=== PATIENT | male | born 1970 | race Caucasian/White ===

== ENCOUNTER 2023-07-02 09:42 | Outpatient (AMB) | payer MEDICAID, SELFPAY ==
--- NOTE | 2023-07-02 09:47 | A.OFFVIS_ITS ---
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 Digester Cook Required: No Software Test Specialist: Software Test Specialist Present Accompanied by: Mother Allergies No Known Allergies Allergy (Unverified 04/13/20 15:07) Medication List - Last Reconciled 07/02/23 by Lai Velasquez MD aspirin (Adult Aspirin Regimen) 81 mg PO DAILY atorvastatin 80 mg PO BEDTIME losartan 25 mg PO DAILY methadone (Methadose) 120 mg PO DAILY metoprolol succinate ER 12.5 mg PO DAILY ticagrelor (Brilinta) 90 mg PO BID HPI HPI Comments History of Present Illness Details Thank you for referring Logan in cardiology consultation today for management of his cardiovascular disease. He is a 52-year-old male who in March suffered acute myocardial infarction with inferior STEMI undergoing emergent cardiac catheterization and drug-eluting stent with thrombectomy to the mid RCA. Following that he was released home and surprisingly did not have any clear cardiology follow-up. He was taking all his medications. He was a long- term smoker and has used heroin and Xylazine in the past. He said he has had in the past chronic opioid use disorder for which he was clean for 13 years and started using it again. He discharge in March it in May while at home he had [id number]-mllhmwty cardiac arrest with ventricular arrhythmias was successfully resuscitated in the field and subsequently admitted to [facility] again. At that time he had ruled in again and underwent a cardiac catheterization which had shown patent stent and nonobstructive CAD. Echocardiogram done at that time at shown severe LV systolic dysfunction with LVEF of 20-25% with large area of scarred myocardium. Patient subsequently underwent single-chamber ICD placement of [employer]. He has not had any recurrent events since then. He is currently taking dual antiplatelet therapy with aspirin Brilinta, high-intensity statin therapy with atorvastatin as well as metoprolol which is at low dose 12.5 mg daily and losartan which is a 25 mg. He says ever since his event he has lost about 50 lb. He has chronic recurrent diarrhea and goes multiple times to the [facility]. He has not had any bleeding complications as per him. However mother notices that he is pale. He has also lost lot of muscle mass. He has no fever or chills or cough. He does complain of exertional shortness of breath. He has no heart failure symptoms of orthopnea, PND, leg edema or abdominal distension. No prolonged palpitation irregular heartbeat or ICD discharge. [facility] Medical History Polysubstance abuse Cardiac arrest ICD (implantable cardioverter-defibrillator) in place Ischemic cardiomyopathy CAD (coronary artery disease) Surgical History Stented coronary artery Review of Systems Const Denies chills, Denies daytime sleepiness, Denies fatigue, Denies fever(s), Denies frequent falls, Denies poor appetite, Denies snoring, Denies stops breathing during sleep, Denies weakness, Denies weight gain and Denies weight loss Eyes Denies loss of vision ENT Denies dizziness and Denies hearing loss Card Denies chest pain, Denies claudication, Denies leg edema, Denies lightheadedness, Denies palpitations, Denies dyspnea, Denies dyspnea on exertion and Denies orthopnea Resp Denies cough, Denies excessive phlegm production, Denies dyspnea, Denies dyspnea on exertion, Denies snoring and Denies wheezing GI Denies abdominal pain, Denies hematochezia, Denies change in bowel habits, Denies nausea and Denies vomiting Denies dysuria and Denies urinary frequency Musc Denies arthralgias, Denies muscle weakness, Denies numbness and Denies other (frequent falls) Skin/Breast Denies nail changes and Denies rash Neuro Denies Abnormal speech present, Denies dizziness, Denies frequent falls, Denies loss of vision, Denies memory loss, Denies numbness and Denies weakness Psych Denies depression and Denies memory loss Endo Denies fatigue and Denies palpitations Rustam/Lymph Reports easy bruising and Reports other (anemia) Aller/Immun Denies wheezing Physical Exam Vital Signs: Last Vital Signs Pulse 50 07/02/23 09:51 BP 120/76 07/02/23 09:51 BMI result Body Mass Index 23.7 Const General: cooperative, comfortable, no acute distress, alert, awake and other (Pale) Nutritional Appearance: thin Orientation/consciousness: patient oriented x3 Limitations: no limitations HEENT Head: Yes normocephalic and Yes atraumatic Neck Neck: Yes trachea midline, Yes supple and Yes no JVD Resp Effort & Inspection: normal respiratory effort Auscultation: clear to auscultation bilaterally Cardio Jugular venous distension: no JVD Palpation: abnormal PMI displaced PMI Rate: regular rate Rhythm: regular rhythm Heart sounds: S1 normal heart sound present, S2 normal heart sound present, no click, no gallops and no murmurs GI Auscultation: normal bowel sounds Skin General skin exam: no rashes or lesions noted Neuro General: patient oriented x3 and no focal motor deficits Speech: No Abnormal speech present Extrem General: Yes no clubbing, cyanosis or edema Office Procedures Cardiac Device Check Cardiac Device Check Details: [email or web address] subcutaneous ICD in place. Programmed in VVI at 40 beats per minute. VF zone at 220 beats per minute with treatment with ATP and subsequently shocked therapy. Ventricular sensing is excellent. Ventricular pacing thresholds excellent. Pacing and shock lead impedance is stable. Battery life is at 12 years 49777-[id number] Cardiac Device Check, single lead implantable defibrillator Procedure code (CPT) selection complete Assessment & Plan Assessment & Plan (1) Ischemic cardiomyopathy: Code(s): I25.5 - Ischemic cardiomyopathy Plan: Patient has developed severe ischemic cardiomyopathy by last echocardiogram although portion of it might be stress-induced cardiomyopathy related to sudden cardiac that. He is having symptoms of shortness of breath with exertion NYHA class 2. Will switch is therapy for neurohormonal modulation from metoprolol to carvedilol 3.125 mg b.i.d. and from losartan to Entresto. Advised to monitor blood pressure at home. Clinically euvolemic and well compensated with no signs or symptoms of heart failure. These were discussed with him. Long-term prognosis is impaired given his severe LV systolic dysfunction. Will follow-up in 4 weeks and will gradually uptitrate his medications as tolerated. Follow-up BMP in few days after starting Entresto. Importance of compliance with medication was discussed. Avoidance of cardiotoxic agent as well as drug use was discussed with him. (2) CAD (coronary artery disease): Comment: Inferior STEMI, March 2023 leading to drug-eluting stent to RCA with required mechanical thrombectomy Code(s): I25.10 - Atherosclerotic heart disease of [place] coronary artery without angina pectoris Plan: CAD status post RCA drug-eluting stent for inferior STEMI with residual significant myocardial infarct and scar. Importance of dual antiplatelet therapy was discussed. He has developed some side effect which is suspected to be related to Brilinta. Will switch him to Plavix 75 mg daily. Continue dual antiplatelet therapy for 1 year an interrupted. Phase 2 cardiac rehabilitation. Aggressive control of blood pressure. Continue high-intensity statin therapy. Advised lipid panel near future. Smoking cessation was applauded. Avoidance of drug use was discussed. Advised to gradually improve with exercise capacity. Will get baseline blood work (3) ICD (implantable cardioverter-defibrillator) in place: Comment: [employer] subcutaneous ICD for cardiac arrest, 06/19 Code(s): Z95.810 - Presence of automatic (implantable) cardiac defibrillator Plan: ICD in place for secondary prevention. ICD is working well. Will follow remotely for heart failure and ICD function. Will follow up in the clinic in 6 months time. Thank you for allowing us to partake in his care. Will follow up in the clinic in 4 weeks time. Greater than 40 minutes was spent in managing his complex care Orders: Orders Basic Metabolic Panel Today I25.10 - Atherosclerotic heart disease of [place] coronary artery without angina pectoris Complete Blood Count no Diff Today I25.10 - Atherosclerotic heart disease of [place] coronary artery without angina pectoris Lipid Panel Today I25.10 - Atherosclerotic heart disease of [place] coronary artery without angina pectoris Cardiac Rehab Today I25.5 - Ischemic cardiomyopathy, Z95.2 - Presence of prosthetic heart valve B Type Natriuretic Peptide Today I25.10 - Atherosclerotic heart disease of [place] coronary artery without angina pectoris Magnesium Today I25.10 - Atherosclerotic heart disease of [place] coronary artery without angina pectoris TSH reflex Free T4 Today I25.10 - Atherosclerotic heart disease of [place] coronary artery without angina pectoris Medications: New sacubitril-valsartan 24-26 mg (Entresto) 1 tab PO BID 60 tabs 2RF I25.5 - Ischemic cardiomyopathy carvedilol (Coreg) must administer with a meal/food 3.125 mg PO BID 60 tabs 1RF I25.5 - Ischemic cardiomyopathy clopidogrel (Plavix) 75 mg PO DAILY 30 tabs 1RF I25.5 - Ischemic cardiomyopathy Coding Level of Care Code New Pt Level 5 (65359) Diagnoses Ischemic cardiomyopathy I25.5 CAD (coronary artery disease) I25.10 ICD (implantable cardioverter-defibrillator) in place Z95.810 CPT Codes Cardiac Device Check - Cardiac Device 4: 73605-UY Cardiac Device Check, single lead implantable defibrillator ([id number])
[2023-07-02 09:51] VITALS: BP 120/76; PULSE 50; BMI 23.7
== END 2023-07-02 10:35 | disposition home or self-care (01) ==
PROVIDERS: PCP Internal Medicine; Visit Provider Internal Medicine Cardiovascular Disease
DX: I25.5 Ischemic cardiomyopathy (principal); I25.10 Atherosclerotic heart disease of native coronary artery without angina pectoris; Z95.810 Presence of automatic (implantable) cardiac defibrillator
CPT/HCPCS: 93282; 99205

== ENCOUNTER → 2023-07-02 09:42 | Outpatient (BNVA) | payer MEDICAID, SELFPAY | PROVIDERS: PCP Internal Medicine; Visit Provider Internal Medicine Cardiovascular Disease | DX: Z45.02 Encounter for adjustment and management of automatic implantable cardiac defibrillator (principal); I25.10 Atherosclerotic heart disease of native coronary artery without angina pectoris; I25.5 Ischemic cardiomyopathy | CPT/HCPCS: 99202 ==

== ENCOUNTER → 2023-07-08 23:59 | Outpatient (BNV) | payer MEDICAID, SELFPAY ==
--- NOTE | 2023-07-10 16:06 | A.OFFVIS_ITS ---
Intake Intake Visit Reasons: Remote ICD Check- [employer] Allergies No Known Allergies Allergy (Unverified 04/13/20 15:07) [facility] Medical History Polysubstance abuse Cardiac arrest ICD (implantable cardioverter-defibrillator) in place Ischemic cardiomyopathy CAD (coronary artery disease) Surgical History Stented coronary artery Office Procedures Cardiac Device Check Cardiac Device Check Details: Remote ICD report generated 07/08/2023. Patient had 1 episode of high ventricular rate which was in VT zone and was treated with to ATP pacing. Patient subsequently converted to sinus rhythm. ICD function is adequate. After calling patient seems like patient was lightheaded during this episode. No syncopal episodes or ICD shock [id number] Cardiac Interrogation, implant defibrillator w/interim Procedure code (CPT) selection complete Assessment & Plan Assessment & Plan (1) ICD (implantable cardioverter-defibrillator) in place: Comment: [employer] subcutaneous ICD for cardiac arrest, 06/19 Code(s): Z95.810 - Presence of automatic (implantable) cardiac defibrillator Plan: See above Medications: Discontinued carvedilol (Coreg) must administer with a meal/food Discontinued Reason: Doctor's Order 3.125 mg PO BID 90 days 180 tabs 1RF I25.5 - Ischemic cardiomyopathy Coding Level of Care Code Procedure Only Diagnoses ICD (implantable cardioverter-defibrillator) in place Z95.810 CPT Codes Cardiac Device Check - Cardiac Device 13: [id number] Cardiac Interrogation, implant defibrillator w/interim ([id number])
== END ==
PROVIDERS: PCP Internal Medicine; Visit Provider Internal Medicine Cardiovascular Disease
DX: I25.5 Ischemic cardiomyopathy (principal); Z95.810 Presence of automatic (implantable) cardiac defibrillator
CPT/HCPCS: 93295

== ENCOUNTER 2023-07-31 15:24 | Outpatient (AMB) | payer MEDICAID, SELFPAY ==
[2023-07-31 15:30] VITALS: BP 110/70; PULSE 100; BMI 22.8
--- NOTE | 2023-07-31 15:30 | MHC.OFFVIS ---
Intake Vital Signs 07/31/23 15:30 Height 5 ft 9.5 in Weight 156 lb 8.451 oz BMI 22.8 BP 110/70 Blood Pressure Location Lt brachial Position Sitting Pulse 100 Intake Visit Reasons: [facility] dc Intake Note: Follow-up [facility] [employer] with ekg Rubber Chemist Required: No Sports Administrator: Sports Administrator Present Accompanied by: Mother Allergies No Known Allergies Allergy (Unverified 04/13/20 15:07) Medication List - Last Reconciled 07/31/23 by Lai Velasquez MD aspirin (Adult Aspirin Regimen) 81 mg PO DAILY atorvastatin 80 mg PO BEDTIME clopidogrel (Plavix) 75 mg PO DAILY magnesium 250 mg PO DAILY methadone (Methadose) 90 mg PO DAILY metoprolol succinate ER 100 mg PO DAILY sacubitril-valsartan 24-26 mg (Entresto) 1 tab PO BID HPI HPI Comments History of Present Illness Details Logan comes for follow-up after recent hospitalization with VT storm. Patient admitted to [facility] for about a week. Subsequently had upgrade of his single-chamber device to dual-chamber [employer] device with atrial rate set at 100 beats per minute. Patient also started on mexiletine therapy. Also suggestion of reducing methadone dose as it was suspected that his arrhythmias mostly polymorphic in might be induced by methadone. He has actively reduces methadone to 90 mg daily. He has not had any recurrent episode. He also started Entresto therapy and is tolerating this now. Also metoprolol therapy for neurohormonal modulation. He has not had any recurrent anginal sounding chest discomfort. Denies any heart failure symptoms. He is very anxious about his overall heart condition which is understandable. [facility] Medical History (Updated 08/01/23 @ 14:59 by Lai Velasquez MD) Polysubstance abuse Cardiac arrest ICD (implantable cardioverter-defibrillator) in place Ischemic cardiomyopathy CAD (coronary artery disease) Surgical History Stented coronary artery Review of Systems Const Denies chills, Denies fatigue, Denies fever(s), Denies frequent falls, Denies weakness, Denies weight gain and Denies weight loss ENT Denies dizziness Card Denies chest pain, Denies leg edema, Denies lightheadedness, Denies palpitations, Denies dyspnea, Denies dyspnea on exertion, Denies orthopnea and Denies other (loss of consciousness) Resp Denies cough, Denies dyspnea and Denies dyspnea on exertion GI Denies hematochezia and Denies change in stool character Musc Denies abnormal gait, Denies muscle weakness, Denies numbness, Denies radiating pain into limb and Denies tingling Neuro Denies Abnormal speech present, Denies abnormal gait, Denies dizziness, Denies frequent falls, Denies numbness, Denies tingling and Denies weakness Endo Denies fatigue and Denies palpitations Physical Exam Vital Signs: Last Vital Signs Pulse 100 07/31/23 15:30 BP 110/70 07/31/23 15:30 BMI result Body Mass Index 22.8 Const General: cooperative, comfortable, no acute distress, alert, awake and other (Pale) Nutritional Appearance: thin Orientation/consciousness: patient oriented x3 Limitations: no limitations HEENT Head: Yes normocephalic and Yes atraumatic Neck Neck: Yes trachea midline, Yes supple and Yes no JVD Resp Effort & Inspection: normal respiratory effort Auscultation: clear to auscultation bilaterally Cardio Jugular venous distension: no JVD Palpation: abnormal PMI displaced PMI Rate: regular rate Rhythm: regular rhythm Heart sounds: S1 normal heart sound present, S2 normal heart sound present, no click, no gallops and no murmurs GI Auscultation: normal bowel sounds Skin General skin exam: no rashes or lesions noted Neuro General: patient oriented x3 and no focal motor deficits Speech: No Abnormal speech present Extrem General: Yes no clubbing, cyanosis or edema Office Procedures Cardiac Device Check Cardiac Device Check Details: Dual-chamber [employer] ICD in place. Programmed in DDDR at 100 beats per minute. Pacing 100% of the time. No significant arrhythmias detected since June. Atrial ventricular sensing is adequate. Atrial ventricular pacing thresholds adequate. Pacing and shock lead impedance is stable. Battery life is excellent [id number] Cardiac Device Check, dual lead implantable defibrillator Procedure code (CPT) selection complete EKG Details: EKG shows atrially paced, ventricularly sensed rhythm with inferior infarct as well as diffuse ST T wave changes in the anterior leads with QTC interval of 490 milliseconds [id number], Complete Assessment & Plan Assessment & Plan (1) Cardiac arrest: Code(s): I46.9 - Cardiac arrest, cause unspecified Plan: Patient with repeat VT storm and hospitalization with polymorphic ventricular tachycardia which could be related to drug therapy. There is active trial to reduce methadone therapy. He has reducing it gradually and wants to come off it. This effort was applauded. Also possibly could be related to scar based VT. However currently his atrial rate is set at 100 beats per minute to reduce risk of torsades and is being followed by electrophysiology service and will gradually reduce his rate. Continue mexiletine therapy. Avoid other QT prolonging drugs. Patient was advised to avoid any other dqdo-btk-uawgtry medications without discussion with our team. He understands and agrees. Will continue monitor remotely (2) ICD (implantable cardioverter-defibrillator) in place: Comment: [employer] subcutaneous ICD for cardiac arrest, 06/19 Code(s): Z95.810 - Presence of automatic (implantable) cardiac defibrillator Plan: Dual-chamber ICD in place for polymorphic ventricular tachycardia as well as for secondary prevention. Will follow remotely. (3) Ischemic cardiomyopathy: Code(s): I25.5 - Ischemic cardiomyopathy Plan: Moderately severe LV systolic dysfunction related to ischemic cardiomyopathy. Clinically euvolemic and well compensated. No indication for diuretic therapy at this point time. Agree with Entresto therapy and metoprolol therapy. Blood pressure is well optimized. Signs and symptoms of heart failure were discussed. He understands and agrees. Need for neurohormonal modulation to prevent further worsening of LV systolic function was discussed with him. Avoidance of cardiotoxic agent was discussed. Continue maximize therapy as tolerated. (4) CAD (coronary artery disease): Comment: Inferior STEMI, March 2023 leading to drug-eluting stent to RCA with required mechanical thrombectomy Code(s): I25.10 - Atherosclerotic heart disease of [place] coronary artery without angina pectoris Plan: CAD status post inferior STEMI with infarcted myocardium in the inferior territory. Continue dual antiplatelet therapy for total of 1 year. Continue high-intensity statin therapy with target goal LDL closer to 60 mg/dL. Avoidance of all drugs including cocaine and smoking was discussed with him. Advised to participate in phase 2 cardiac rehabilitation. He is considering that in near future. Will follow up in the clinic in 3 months time, sooner p.r.n.. Greater than 40 minutes was spent in managing his complex care Coding Level of Care Code Est Pt Level 5 (15299) Diagnoses Cardiac arrest I46.9 ICD (implantable cardioverter-defibrillator) in place Z95.810 Ischemic cardiomyopathy I25.5 CAD (coronary artery disease) I25.10 CPT Codes Cardiac Device Check - Cardiac Device 5: [id number] Cardiac Device Check, dual lead implantable defibrillator ([id number]) EKG - CPT: 42570-Lkklmhwkihweufhqu, Complete ([id number])
== END 2023-07-31 16:07 | disposition home or self-care (01) ==
PROVIDERS: PCP Internal Medicine; Visit Provider Internal Medicine Cardiovascular Disease
DX: I46.9 Cardiac arrest, cause unspecified (principal); I25.5 Ischemic cardiomyopathy; Z95.810 Presence of automatic (implantable) cardiac defibrillator; I25.10 Atherosclerotic heart disease of native coronary artery without angina pectoris
CPT/HCPCS: 93283; 99215

== ENCOUNTER → 2023-07-31 15:24 | Outpatient (BNVA) | payer MEDICAID, SELFPAY | PROVIDERS: PCP Internal Medicine; Visit Provider Internal Medicine Cardiovascular Disease | DX: Z45.02 Encounter for adjustment and management of automatic implantable cardiac defibrillator (principal); I46.9 Cardiac arrest, cause unspecified; I25.5 Ischemic cardiomyopathy; I25.10 Atherosclerotic heart disease of native coronary artery without angina pectoris | CPT/HCPCS: 93005; 99212 ==

== ENCOUNTER 2023-08-11 09:50 | Outpatient (AMB) | payer MEDICAID, SELFPAY ==
[2023-08-11 10:24] VITALS: BP 114/82; BMI 22.6
--- NOTE | 2023-08-11 10:24 | A.OFFVIS_ITS ---
Intake Vital Signs 08/11/23 10:24 Height 5 ft 9 in Weight 153 lb 0.013 oz BMI 22.6 BP 114/82 Blood Pressure Location Rt brachial Position Sitting Intake Visit Reasons: follow-up [facility] ED Unemployment Inspector Required: No Rn Anesthetist: Rn Anesthetist Present Allergies No Known Allergies Allergy (Verified 08/11/23 10:27) Medication List - Last Reconciled 08/11/23 by JOHANNY Manjarrez aspirin (Adult Aspirin Regimen) 81 mg PO DAILY atorvastatin 80 mg PO BEDTIME clopidogrel (Plavix) 75 mg PO DAILY magnesium 250 mg PO DAILY methadone (Methadose) 90 mg PO DAILY metoprolol succinate ER 100 mg PO DAILY sacubitril-valsartan 24-26 mg (Entresto) 1 tab PO BID HPI follow-up [facility] ED HPI Details Logan is a 52-year-old male with past medical history of smoking, inferior STEMI 03/2023 with emergent cardiac catheterization and drug-eluting stent with thrombectomy to the mid RCA. In May 2023 he had a out of hospital cardiac arrest with successful resuscitation in the field. He underwent cardiac catheterization at that time which showed patent stent, nonobstructive CAD. Echocardiogram showed severe LV dysfunction, EF 20-25% with large area of scarred myocardium. He underwent a single-chamber ICD placement and was put on appropriate medical management. He then was admitted to [facility] on 07/19/2023 following ICD shock which proceeded to VT storm. He was admitted to the CCU and evaluated by electrophysiology. He was on IV medications to suppress ventricular arrhythmias and eventually transition to mexiletine and metoprolol. He Did undergo placement of a right atrial pacemaker lead. He was to follow with electrophysiology and the heart failure team at [facility] following discharge. Today he reports that he was not sure if he was to come to this office or not. He had been following with Dr. Velasquez and he now has appointments with doctors at [facility]. He has been doing generally well since his last hospital discharge. He did have 1 episode where he felt tingling in his extremities which is the symptom that he felt prior to getting the ICD shock. He said he went to the [facility] ER and was told things were okay. He denies having any chest discomfort at rest or with activity. No shortness of breath, palpitations, presyncope, syncope, PND, orthopnea or edema. He is taking all medications as directed. He quit smoking. He is trying to wean his methadone down as he knows it can affect his heart. His mother is present. [facility] Medical History (Updated 08/11/23 @ 11:53 by JOHANNY Manjarrez) Polysubstance abuse Cardiac arrest ICD (implantable cardioverter-defibrillator) in place Ischemic cardiomyopathy CAD (coronary artery disease) Surgical History (Updated 08/11/23 @ 11:53 by NABILA ManjarrezC) Stented coronary artery Review of Systems Const All systems reviewed & are unremarkable except as noted in HPI and below ENT Denies dizziness Card Denies chest pain, Denies chest pain at rest, Denies chest pain with activity, Denies rapid heart rate, Denies pedal edema, Denies edema, Denies leg edema, Denies lightheadedness, Denies palpitations, Reports dyspnea, Reports dyspnea on exertion and Denies orthopnea Resp Denies cough, Reports dyspnea and Reports dyspnea on exertion GI Denies hematochezia and Denies change in stool character Musc Denies abnormal gait, Denies limited range of motion, Denies muscle cramps, D enies muscle weakness, Denies numbness, Denies radiating pain into limb, Denies stiffness and Denies tingling Neuro Denies abnormal gait, Denies dizziness, Denies numbness and Denies tingling Endo Denies palpitations Physical Exam Vital Signs: Last Vital Signs BP 114/82 08/11/23 10:24 BMI result Body Mass Index 22.6 Const General: cooperative, healthy appearing, comfortable and no acute distress Orientation/consciousness: patient oriented x3 Neck Neck: Yes normal visual inspection Resp Effort & Inspection: normal respiratory effort Auscultation: clear to auscultation bilaterally, no rales, no rhonchi and no wheezes Cardio Jugular venous distension: no JVD Rate: regular rate Rhythm: regular rhythm Heart sounds: S1 normal heart sound present, S2 normal heart sound present, no murmurs and no rubs Neuro General: patient oriented x3 Extrem General: Yes normal to inspection, No no pedal edema and No calf tenderness Psych Appearance: grossly normal Mental Status: mental status grossly normal Speech and movement: Normal speech and movement present Assessment & Plan Assessment & Plan (1) Ventricular tachycardia: Code(s): I47.20 - Ventricular tachycardia, unspecified Plan: Patient with prior inferior STEMI, large inferior scar, ischemic cardiomyopathy, ICD in place who had several ICD shocks on 07/19/2023 with admission to [facility] in [place] storm. He did initially require IV drip medication, lidocaine and esmolol to help control ventricular arrhythmias. He was eventually weaned and was on amiodarone which was then changed to mexiletine. Was discharged with mexiletine 150 mg twice daily, metoprolol succinate 100 mg daily. He has follow-up with electrophysiology at [facility]. His ICD was upgraded to a dual-chamber device. An atrial lead was placed. He has not had any known ICD shocks since his hospital discharge. [place] tingling in his body on 1 day which is a symptom he noticed prior to receiving ICD shocks. He did get evaluated at [facility] without known acute findings. Medications reviewed with him in detail. He reports strict compliance. He quit smoking completely and was applauded on this. Will have him continue to follow with [facility] providers as he has been set up with electrophysiology and the heart failure team. Dr. Velasquez is aware and agreeable. (2) ICD (implantable cardioverter-defibrillator) in place: Comment: [employer] subcutaneous ICD for cardiac arrest, 06/19 Code(s): Z95.810 - Presence of automatic (implantable) cardiac defibrillator Plan: Brief interrogation done today to evaluate for any recurrent shocks and none noted. Remote monitoring has now been taken over by [facility] providers. Patient informed of this. (3) Ischemic cardiomyopathy: Code(s): I25.5 - Ischemic cardiomyopathy Plan: EF reduced to 20-25% post inferior infarct with large area of scarred myocardium. He is currently on metoprolol succinate and valsartan for neurohormonal modulation. BP check done by me after patient sitting and resting, 96/62. Blood pressure currently on low side, unable to further titrate medications. Most recent labs done through [facility] system. He does not appear in decompensated heart failure at this time. Will continue on current meds without change. (4) CAD (coronary artery disease): Comment: Inferior STEMI, March 2023 leading to drug-eluting stent to RCA with required mechanical thrombectomy Code(s): I25.10 - Atherosclerotic heart disease of [place] coronary artery without angina pectoris Plan: As above. No reports of anginal sounding symptoms (5) Stented coronary artery: Comment: WINNIE to mid-RCA for Inferior STEMI Code(s): Z95.5 - Presence of coronary angioplasty implant and graft Plan: As above (6) Hospital discharge follow-up: Code(s): Z09 - Encounter for follow-up examination after completed treatment for conditions other than malignant neoplasm Plan: As above Plan Time spent on chart review, documentation, interview and assessment Coding Level of Care Code Est Pt Level 4 (97465) Diagnoses Ventricular tachycardia I47.20 ICD (implantable cardioverter-defibrillator) in place Z95.810 Ischemic cardiomyopathy I25.5 CAD (coronary artery disease) I25.10 Stented coronary artery Z95.5 Hospital discharge follow-up Z09 Time Spent (min) 35
== END 2023-08-11 11:22 | disposition home or self-care (01) ==
PROVIDERS: PCP Internal Medicine; Visit Provider Nurse Practitioner Family
DX: I47.20 Ventricular tachycardia, unspecified (principal); Z95.810 Presence of automatic (implantable) cardiac defibrillator; I25.5 Ischemic cardiomyopathy; I25.10 Atherosclerotic heart disease of native coronary artery without angina pectoris; Z95.5 Presence of coronary angioplasty implant and graft; Z09 Encounter for follow-up examination after completed treatment for conditions other than malignant neoplasm
CPT/HCPCS: 99214

== ENCOUNTER → 2023-08-11 09:50 | Outpatient (BNVA) | payer MEDICAID, SELFPAY | PROVIDERS: PCP Internal Medicine; Visit Provider Nurse Practitioner Family | DX: Z09 Encounter for follow-up examination after completed treatment for conditions other than malignant neoplasm (principal); I47.20 Ventricular tachycardia, unspecified; I25.5 Ischemic cardiomyopathy; I25.10 Atherosclerotic heart disease of native coronary artery without angina pectoris; Z95.5 Presence of coronary angioplasty implant and graft; Z95.810 Presence of automatic (implantable) cardiac defibrillator | CPT/HCPCS: 99212 ==

== ENCOUNTER 2024-08-18 13:58 | Outpatient (REF) | payer MEDICAID, SELFPAY ==
--- OUTSIDE RECORDS SUMMARY | 2024-08-18 16:17 | XMS_ITS | Clinical Summary ---
Author Organization [employer] Address [address] [place] [address] [address] [place] [address] Care Team Providers Care Core Shaper Sides Name Role Phone Reza Nova MD Primary Care Provider [phone] Allergies No known active allergies Medications * This document contains information received from the source organization and may not represent a complete record from that organization. nicotine (Nicoderm, Step 1) 21 MG/24HR patch APPLY 1 PATCH TOPICALLY EVERY DAY. REMOVE OLD PATCH BEFORE APPLYING NEW ONE. 04/12/20 23 Active Aspirin Low Dose 81 MG chewable tabletIndicatio ns:ST elevation myocardial infarction involving right coronary artery (CMS/HCC) Chew 1 tablet (81 mg) in the morning. 900 tablet 04/28/20 23 Active atorvastatin (Lipitor) 80 MG tabletIndicatio ns:ST elevation myocardial infarction involving right coronary artery (CMS/HCC) Take 1 tablet (80 mg) by mouth in the morning. 90 tablet 3 04/28/20 23 Active magic mouthwash (lidocaine, diphenhydrAMINE , Maalox 1:1:1) Swish and spit 15 mL every 4 (four) hours if needed for mucositis. 1 part diphenhydramine 12.5 mg per 5 mL elixir, 1 part Maalox (do not substitute Kaopectate), 1 part 2% viscous lidocaine. Quantity: 120 mL. 120 each 06/04/20 Active Additional Information Patient not taking.Reported on 03/25/2024 magnesium oxide (Mag-Ox) 400 (240 Mg) MG tablet Take 1 tablet by mouth 1 (one) time each day. 07/19/20 Active methadone (Dolophine) 10 MG/5ML solution Take 110 mg by mouth 1 (one) time each day. 05/30/20 Active metoprolol succinate XL (Toprol-XL) 100 MG 24 hr tablet Take 1 tablet by mouth 1 (one) time each day. 07/19/20 Active mexiletine (Mexitil) 150 MG capsule Take 1 capsule by mouth every 12 (twelve) hours. 07/19/20 Active Entresto 24-26 MG tablet Take 1 tablet by mouth 2 times daily. 07/02/20 Active Bisacodyl EC 5 MG EC tabletIndicatio ns:Other constipation TAKE 1 TABLET BY MOUTH EVERY DAY NEEDED FOR CONSTIPATION. DO NOT CRUSH, CHEW, OR SPLIT TABLETS. 90 tablet 05/13/20 24 Active hydrocortisone (Anusol-HC) 2.5 % rectal creamIndication s:External hemorrhoids INSERT INTO THE RECTUM 2 TIMES DAILY. 30 g 1 07/13/20 Active amoxicillin-cla vulanate (Augmentin) 875-125 MG tabletIndicatio ns:Non-recurren t acute serous otitis media of left ear Take 1 tablet by mouth 2 times daily for 10 days. 20 tablet 08/18/19 25 025 Active clopidogrel (Plavix) 75 MG tablet Take 1 tablet by mouth 1 (one) time each day. 07/03/20 23 025 Discontin ued(Thera py completed ) neomycin-polymy yakelin-hydrocortis one (Cortisporin) 3.5-34051-1 otic suspensionIndic ations:Other infective acute otitis externa of left ear Administer 3-4 drops into affected ear(s) 4 times daily for 10 days. 10 mL 07/15/20 24 024 amoxicillin (Amoxil) 500 MG capsule Take 1 capsule (500 mg) by mouth every 8 (eight) hours for 7 days. 21 capsule 08/03/19 25 025 ibuprofen 600 MG tablet Take 1 tablet (600 mg) by mouth 3 times daily for 10 days. 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 [address] [place] [address] Reza Nova MD Non-recurrent acute serous otitis media of left ear (Primary Dx) 08/18/2024 Travel 08/17/2024 Travel 08/17/[address] [facility] [address] [place] [address] Reza Nova MD Nurse Triage 08/04/2024 Orders Only [facility] [address] [place] [address] Reza Nova MD 08/03/2024 9:00 AM EST Office Visit [facility] ADULT DENTAL [address] [place] [address] Mckenna Mcdaniel DDS 07/16/2024 Telephone [facility] [address] [place], [place] [id number] Reza Nova MD Medication Question 07/15/2024 9:45 AM EST Office Visit 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 [address] [place] [address] Reza Nova MD External hemorrhoids from Last 3 Months Immunizations Name Administration Dates Next Due Pfizer Covid-19 Vaccine 12+ 01/22/2024 Pneumococcal Conjugate PCV 20 01/22/2024 Family History Medical History Relation Name Comments Colon cancer Maternal Grandfather No Known Problems Paternal Grandfather Relation Name Status Comments Maternal Grandfather Paternal Grandfather Social History Tobacco Use Types Packs/Day Years Used Date Smoking Tobacco: Former Cigarettes 1 37 1 - 05/24/2023 Smokeless Tobacco: Never Tobacco Cessation:Counseling Given: Not Answered Comments:Has Nicotine patches at home. Slowly cutting down. Depression Answer Date Recorded Patient Health Questionnaire-9 Score 7 01/22/2024 Patient Health Questionnaire-9 Score 7 01/22/2024 Last PHQ-9: Questionnaire Data Not on file 0 01/22/2024 Housing Stability Answer Date Recorded What is your housing situation today? I have tarun francois 07/15/[address] you li ve. Do you have problems with any of the following? None of the above 07/15/2024 Food Insecurity Answer Date Recorded Within the past 12 months, y ou worried that your food would run out before you got money to buy more: Never True 07/15/2024 Within the past 12 months,th e food you bought just didn't last and you didn't have enough money to get more: Never True Transportation Answer Date Recorded In the past 12 months, has l ack of transportation kept you from medical appts, meetings, work or from getting things needed for daily living? No 07/15/2024 Utilities Answer Date Recorded In the past 12 months, has t he electric, gas, oil or water company threatened to shut off services in your home? No 07/15/2024 Depression Answer Date Recorded Patient Health Questionnaire-2 Score 3 01/22/2024 Internet Access Answer Date Recorded Internet Access Q1 Yes 07/15/2024 Internet Access Q2 Not on file 07/15/2024 Sex and Gender Information Value Date Recorded Sex Assigned at Male 05/27/2022 10:20 AM EDT Legal Sex Male 10:20 AM EDT Gender Identity Male 05/27/2022 10:20 AM EDT Sexual Orientation Don't know 05/27/2022 10 :20 AM EDT Last Filed Vital Signs Vital Sign Reading Time Taken Comments Blood Pressure 101/66 08/18/2024 2:18 PM EST Pulse 84 08/18/2024 2:18 PM EST Temperature 36.6 ??C (97.8 ??F) 08/18/2024 2:18 PM ES T Respiratory Rate 20 08/18/2024 2:18 PM EST Oxygen Saturation 97% 04/14/2024 3:26 PM EDT Inhaled Oxygen Concentration - - Weight 80.3 kg (177 lb) 08/18/2024 2:18 PM EST Height 175.3 cm (5' 9 ) 08/18/2024 2:18 PM EST Body Mass Index 26.14 08/18/2024 2:18 PM EST Plan of Treatment Upcoming Encounters Date Type Department Care Team (Late st Contact Info) Description 10/11/2024 9:00 AM EDT Office Visit [facility] [address] [place] [address] Reza Nova MD [address] [place] [address] Health Maintenance Due Date Last Done Comments CT Colonography 1972 Colonoscopy 1972 Colorectal Cancer Screening 1972 FIT DNA/Cologuard 1972 FIT 1972 FOBT 1972 HIV Screening 1972 Lipid Panel 1972 Sigmoidoscopy 1972 Family Planning (PISQ) 1987 Hepatitis C Screening 1990 DTaP/Tdap/Td Vaccines (1 - Tdap) 1991 Hepatitis A Vaccines (1 of 2 - Risk 2-dose series) 1991 Hepatitis B Vaccines (1 of 3 - 19+ 3-dose series) 1991 Dental Oral Exam 04/05/2017 10/02/2016 Dental Prophylaxis 02/10/2019 08/12/2018, 1 08/24/2016, 12/17/2016 Dental X-Ray: Full Mouth 10/04/2019 10/02/2016, 11/2012 Dental X-Ray: Bitewings 09/22/2020 09/21/19 20, 12/14/2018, 08/10/2018, Additional history exists Lung Cancer Screening 2022 Zoster Vaccines (1 of 2) 2022 COVID-19 Vaccine ( season) 2024 01/22/2024, 08/17/2021, 01/20/2021, Additional history exists Influenza Vaccine (#1) 2024 Depression Screening 01/21/2025 01/22/2024, 01/22/20 Alcohol/Substance Use Screening 07/15/2025 07/15/2024 SDOH Screening 07/15/2025 07/15/2024 Tobacco Screening 08/03/2025 08/03/2024 RSV Patients and Patients Aged 60 years or older (1 - 1-dose 75+ series) 2047 Pneumococcal Vaccine: Pediatrics (0 to 5 Years) and At-Risk Patients (6 to 64 Years) Completed 01/22/2024 HIB Vaccines Aged Out No longer eligi ble based on patient's age to complete this topic HPV Vaccines Aged Out No longer eligi ble based on patient's age to complete this topic IPV Vaccines Aged Out No longer eligi ble based on patient's age to complete this topic Meningococcal Vaccine Aged Out No ivania abraham eligible based on patient's age to complete this topic RSV under 20 months Aged Out No longe r eligible based on patient's age to complete this topic Rotavirus Vaccines Aged Out No longer eligible based on patient's age to complete this topic Procedures Procedure Name Priority Date/Time Associated Diagnosis Comments 5 LIMITED ORAL EVALUATION - PROBLEM FOCUSED Routine 08/03/2024 9:00 AM EST BITEWING - SINGLE RADIOGRAPHIC IMAGE Routine 09/21/2019 12:00 AM EST PROPHYLAXIS - ADULT Routine 08/12/2018 1 2:00 AM EST DIAGNOSTIC - DIAGNOSTIC IMAGING - INTRAORAL - COMPREHENSIVE SERIES OF RADIOGRAPHIC IMAGES Routine 10/02/2016 12:00 AM EST COMPREHENSIVE ORAL EVALUATION - NEW OR ESTABLISHED PATIENT Routine 10/02/2016 12:00 AM EST from Last 3 Months or Most Recently Relevant to Health Maintenance Insurance [facility] ST[facility] ADULT Care Teams Core Shaper Sides Relationship Specialty Start Date End Date Reza Nova MD [address] [place] [address] PCP - General Internal Medicine 07/28/18
--- OUTSIDE RECORDS SUMMARY | 2024-08-18 16:17 | XMS_ITS | Encounter Summary ---
Author Organization [employer] Address [address] [place] [address] Care Team Providers Care Attending Pathologist Name Role Phone Reza Nova MD Primary Care Provider [phone] Encounter Details Date Type Department Care Team (Latest Contact Info) Description 08/18/2024 Travel Social History Tobacco Use Types Packs/Day Years Used Date Smoking Tobacco: Former Cigarettes 1 37 1 - 05/24/2023 Smokeless Tobacco: Never Comments:Has Nicotine patche s at home. Slowly cutting down. Depression Answer [...] Don't know 05/27/2022 10 :20 AM EDT documented as of this encounter Plan of Treatment Upcoming Encounters Date Type Department Care Team (Late st Contact Info) Description 10/11/2024 9:00 AM EDT Office Visit [facility] [address] [place] [address] Reza Nova MD [address] [place] [address] documented as of this encounter Visit Diagnoses Not on filedocumented in this encounter Additional Health Concerns Assessment Noted Time PHQ-9 Depression Total Score: 7 01/22/20 24 3:45 PM EDT documented as of this encounter Care Teams Attending Pathologist Relationship Specialty Start Date End Date Reza Nova MD [address] [place] [address] PCP - General Internal Medicine 07/28/18 documented as of this encounter
--- OUTSIDE RECORDS SUMMARY | 2024-08-18 16:17 | XMS_ITS | Encounter Summary ---
Author Organization [employer] Address [address] [place] [address] Care Team Providers Care Welding Setter Name Role Phone Reza Nova MD Primary Care Provider [phone] Reason for Visit * Reason Onset Date Comments Nurse Triage 08/17/2024 Encounter Details Date Type Department Care Team ([facility] Contact Info) Description 08/17/2024 Telephone [facility] [address] [place], [place] [phone] Reza Nova MD [address] [place] [address] Nurse Triage Social History Tobacco Use Types Packs/Day Years [...] AM EDT documented as of this encounter Miscellaneous Notes * Telephone Encounter - Mildred Turner RN - 08/17/2024 10:19 AM EST T/C re: triage. Pt states that itchiness is gone from ear but he is having increased hearing difficulty and feel that something is echoing in his ear. Pt denies dizziness, pain, increased pressure orany other new symptoms at this time. Pt agrees to [facility] [place] [facility] tomorrow at 2pm. RN reviewED precautions and pt expresses understanding and agrees to plan of care. * Telephone Encounter - Rosamaria Samuels - 08/17/2024 9:57 AM EST Symptom: Hearing Loss Outcome: Schedule an appointment to be seen within 3 days Reason: Caller denied all higher acuity questions The caller accepted this outcome. Pt states Last visit was prescribed ear drops but symptoms has gotten worse. documented in this encounter Plan of Treatment Upcoming Encounters Date Type Department Care Team (Late st Contact Info) Description 10/11/2024 9:00 AM EDT Office Visit [facility] [address] [place] [address] Reza Nova MD [address] [place] [address] documented as of this encounter Visit Diagnoses Not on filedocumented in this encounter Additional Health Concerns Assessment Noted Time PHQ-9 Depression Total Score: 7 01/22/20 24 3:45 PM EDT documented as of this encounter Care Teams Welding Setter Relationship Specialty Start Date End Date Reza Nova MD [address] [place] [address] PCP - General Internal Medicine 07/28/18 documented as of this encounter
--- OUTSIDE RECORDS SUMMARY | 2024-08-18 16:17 | XMS_ITS | Encounter Summary ---
Author Organization [employer] Address [address] [place] [id number] Care Team Providers Care Medical Housekeeper Name Role Phone Reza Noav MD Primary Care Provider +1 [phone] Reason for Referral * Consultation (Urgent) - Pending Review Specialty Diagnoses / Procedures Referred By Harpal lopez Referred To Contact Otolaryngology Diagnoses Non-recurrent acute serous otitis media of left ear Reza Nova MD [address] [place] [address] Phone: tel: fax: Referral ID Status Reason Start Date Expiration Date Visits Requested Visits Authorized [id number] Pending Review Specialty Services Required 08/18/2024 08/18/2025 1 1 Reason for Visit * Reason Comments Ear Pressure Encounter Details Date Type Department Care Team ([facility] Contact Info) Description 08/18/2024 2:00 PM EST Office Visit [facility] [address] [place] [address] Reza Nova MD [address] [place] [address] Non-recurrent acute serous otitis media of left ear (Primary Dx) Social History Tobacco Use Types Packs/Day Years [...] AM EDT documented as of this encounter Last Filed Vital Signs Vital Sign Reading Time Taken Comments Blood Pressure 101/66 08/18/2024 2:18 PM EST Pulse 84 08/18/2024 2:18 PM EST Temperature 36.6 ??C (97.8 ??F) 08/18/2024 2:18 PM ES T Respiratory Rate 20 08/18/2024 2:18 PM EST Oxygen Saturation - - Inhaled Oxygen Concentration - - Weight 80.3 kg (177 lb) 08/18/2024 2:18 PM EST Height 175.3 cm (5' 9 ) 08/18/2024 2:18 PM EST Body Mass Index 26.14 08/18/2024 2:18 PM EST documented in this encounter Progress Notes * Reza Nova MD - 08/18/2024 2:00 PM EST Subjective Patient ID: Logan Adame is a 53 y.o. male who presents for Ear Pressure. HPI H/o left ear ache treated on Jul 15 w/ cortisporin which relieved pt's itchiness. But now feels a weird sensation like an echo and/or hollow sound of the left ear which has been present since the onset of his condition. No drainage, pain, itchiness. Also c/o decreased hearing. 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 900 tablet 0 atorvastatin (Lipitor) 80 MG tablet Take 1 tablet (80 mg) by mouth in the morning. 90 tablet 3 Bisacodyl EC 5 MG EC tablet TAKE 1 TABLET BY MOUTH EVERY DAY NEEDED FOR CONSTIPATION. DO NOT CRUSH, CHEW, OR SPLIT TABLETS. 90 tablet 0 clopidogrel (Plavix) 75 MG tablet Take 1 tablet by mouth 1 (one) time each day. Entresto 24-26 MG tablet Take 1 tablet by mouth 2 times daily. hydrocortisone (Anusol-HC) 2.5 % rectal cream INSERT INTO THE RECTUM 2 TIMES DAILY. 30 g 1 [] ibuprofen 600 MG tablet Take 1 tablet (600 mg) by mouth 3 times daily for 10 days. 30 tablet 0 magic mouthwash (lidocaine, diphenhydrAMINE, Maalox 1:1:1) Swish and spit 15 mL every 4 (four) hours if needed for mucositis. 1 part diphenhydramine 12.5 mg per 5 mL elixir, 1 part Maalox (do not substitute Kaopectate), 1 part 2% viscous lidocaine. Quantity: 120 mL. (Patient not taking: Reported on03/25/2024) 120 each 0 magnesium oxide (Mag-Ox) 400 (240 Mg) MG tablet Take 1 tablet by mouth 1 (one) time each day. methadone (Dolophine) 10 MG/5ML solution Take 110 mg by mouth 1 (one) time each day. metoprolol succinate XL (Toprol-XL) 100 MG 24 hr tablet Take 1 tablet by mouth 1 (one) time each day. mexiletine (Mexitil) 150 MG capsule Take 1 capsule by mouth every 12 (twelve) hours. nicotine (Nicoderm, Step 1) 21 MG/24HR patch APPLY 1 PATCH TOPICALLY EVERY DAY. REMOVE OLD PATCH BEFORE APPLYING NEW ONE. No current facility-administered medications on file prior to visit. No Known Allergies Review of Systems Objective BP 101/66 (BP Location: Left arm, Patient Position: Sitting, BP Cuff Size: Adult) Pulse 84 Temp97.8 ??F (36.6 ??C) (Oral) Resp 20 Ht 5' 9 (1.753 m) Wt 177 lb (80.3 kg) BMI 26.14 kg/m?? Physical Exam Constitutional: General: He is not in acute distress. Appearance: Normal appearance. He is not ill-appearing, toxic-appearing or diaphoretic. HENT: Left Ear: A middle ear effusion is present. Ears: Comments: Cloudy tympanic membrane on otoscopic exam. Cardiovascular: Rate and Rhythm: Normal rate. Pulmonary: Effort: Pulmonary effort is normal. Neurological: Mental Status: He is alert. Assessment/Plan Diagnoses and all orders for this visit: Non-recurrent acute serous otitis media of left ear - amoxicillin-clavulanate (Augmentin) 875-125 MG tablet; Take 1 tablet by mouth 2 times daily for 10 days. - Referral to ENT; Future documented in this encounter Plan of Treatment Upcoming Encounters Date Type Department Care Team (Late st Contact Info) Description 10/11/2024 9:00 AM EDT Office Visit [facility] [address] [place] [address] Reza Nova MD [address] [place] [address] Scheduled Referrals Name Type Priority Associated Diagnoses Orde r Schedule Referral to ENT Outpatient Referral Urgent Non-recurrent acute serous otitis media of left ear Expected: 08/18/2024 (Approximate), Expires: 08/18/2025 documented as of this encounter Visit Diagnoses Diagnosis Non-recurrent acute serous otitis media of left ear- Primary documented in this encounter Additional Health Concerns Assessment Noted Time PHQ-9 Depression Total Score: 7 01/22/20 24 3:45 PM EDT documented as of this encounter Care Teams Medical Housekeeper Relationship Specialty Start Date End Date Reza Nova MD [address] [place] [address] PCP - General Internal Medicine 07/28/18 documented as of this encounter
--- OUTSIDE RECORDS SUMMARY | 2024-08-18 16:17 | XMS_ITS | Encounter Summary ---
Author Organization [employer] Address [address] [facility] [address] [place] [address] Care Team Providers Care Casino Cage Supervisor Name Role Phone Reza Nova MD Primary Care Provider +1 [phone] Encounter Details Date Type Department Care Team (Latest Contact Info) Description 08/17/2024 Travel Social History Tobacco Use Types Packs/Day [...] Description 10/11/2024 9:00 AM EDT Office Visit [facility] [address] [place] [address] Reza Nova MD [address] [place] [address] documented as of this encounter Visit Diagnoses Not on filedocumented in this encounter Additional Health Concerns Assessment Noted Time PHQ-9 Depression Total Score: 7 01/22/20 24 3:45 PM EDT documented as of this encounter Care Teams Casino Cage Supervisor Relationship Specialty Start Date End Date Reza Nova MD [address] [place] [address] PCP - General Internal Medicine 07/28/18 documented as of this encounter
--- OUTSIDE RECORDS SUMMARY | 2024-08-18 16:18 | XMS_ITS | Encounter Summary ---
Author Organization [employer] Address [address] [facility] [address] 7[address] [place] [address] Care Team Providers Care Motor Vehicle Or Caravan Salesperson Name Role Phone Reza Nova MD Primary Care Provider +1- [phone] Reason for Visit * Reason Comments Med Change Request Encounter Details Date Type Department Care Team ([facility] st Contact Info) Description 03/25/2024 Refill [facility] AD[facility] [address] [place] [address] Mckenna Mcdaniel DDS [address] [facility] [place] [address] Social History Tobacco Use Types Packs/Day Years [...] housing situation today? I have tarun francois 07/02/[address] you li ve. Do you have problems with any of the following? None of the above 07/02/2023 Food Insecurity Answer Date Recorded Within the past 12 months, y ou worried that your food would run out before you got money to buy more: Never True 07/02/2023 Within the past 12 months,th e food you bought just didn't last and you didn't have enough money to get more: Never True 12/2022 Transportation Answer Date Recorded In the past 12 months, has l ack of transportation kept you from medical appts, meetings, work or from getting things needed for daily living? No 07/02/2023 Utilities Answer Date Recorded In the past 12 months, has t he electric, gas, oil or water company threatened to shut off services in your home? No 07/02/2023 Depression Answer Date Recorded Patient Health Questionnaire-2 Score 3 01/22/2024 Sex and Gender Information Value Date Recorded Sex Assigned at Male 05/27/2022 10:20 AM EDT Legal Sex Male 10:20 AM EDT Gender Identity Male 05/27/2022 10:20 AM EDT Sexual Orientation Don't know 05/27/2022 10 :20 AM EDT documented as of this encounter Miscellaneous Notes * Telephone Encounter - Mckenna Mcdaniel DDS - 03/31/2024 2:19 PM EDT Approving, but needs appt for additional refills. documented in this encounter Plan of Treatment Upcoming Encounters Date Type Department Care Team (Late st Contact Info) Description 10/11/2024 9:00 AM EDT Office Visit [facility] [address] [place] [address] Reza Nova MD [address] [place] [address] documented as of this encounter Visit Diagnoses Not on filedocumented in this encounter Additional Health Concerns Assessment Noted Time PHQ-9 Depression Total Score: 7 01/22/20 24 3:45 PM EDT documented as of this encounter Care Teams Motor Vehicle Or Caravan Salesperson Relationship Specialty Start Date End Date Reza Nova MD [address] [place] [address] PCP - General Internal Medicine 07/28/18 documented as of this encounter
--- OUTSIDE RECORDS SUMMARY | 2024-08-18 16:18 | XMS_ITS | Encounter Summary ---
Author Organization [employer] Address [address] [facility] 7 [place] [address] Care Team Providers Care Gameplay Engineer Name Role Phone Reza Nova MD Primary Care Provider [phone]- [phone] Reason for Visit * Reason Onset Date Comments Nurse Triage 06/24/2023 Encounter Details Date Type Department Care Team ([facility] st Contact Info) Description 06/24/2023 Telephone [facility] MED[facility] [address] [place], [place] [phone] Reza Nova MD [address] [place] [address] Nurse Triage Social History Tobacco Use Types Packs/Day Years Used Date Smoking Tobacco: Former Cigarettes 1 37 1 - 05/24/2023 Smokeless Tobacco: Never Comments:Has Nicotine patche s at home. Slowly cutting down. Sex and Gender Information Value Date Recorded Sex Assigned at Male 05/27/2022 10:20 AM EDT Legal Sex Male 10:20 AM EDT Gender Identity Male 05/27/2022 10:20 AM EDT Sexual Orientation Don't know 05/27/2022 10 :20 AM EDT documented as of this encounter Miscellaneous Notes * Telephone Encounter - Adrianna Hough RN - 06/24/2023 11:26 AM EST Triage call Pt reports several days of sinus drainage. Pt reports drainage is greenish color, thereis a scab on the inside of the left nare which is causing some tenderness. Pressure applied to either side of nose on cheek area causes pain. Denies headache, fever. Pt would like to see provider in [facility]. Advised to call first thing in the morning 06/25/23 for SDC schedule and Pt agrees with this plan. Protocol Used: Sinus Pain or Congestion (Adult) Protocol-Based Disposition: See in Office or Video Visit Today or Tomorrow Video visit not offered Positive Triage Questions: * Sinus congestion (pressure, fullness) present > 10 days * Patient wants to be seen * All higher-acuity triage questions were negative Care Advice Discussed: * Reassurance and Education - Colds and Sinus Congestion * Hydration * Reasons To Call Back - Severe pain persists over 2 hours after pain medicine - Sinus pain persists over 1 day after using nasal washes - Sinus congestion (fullness) persists over 10 days - Fever lasts over 3 days - You become worse * Telephone Encounter - Tony Rod - 06/24/2023 10:38 AM EST Symptom: Sinus Symptoms Outcome: Schedule an urgent appointment (within 1 hour) or talk to a nurse or provider soon Reason: Any trouble breathing through the mouth The caller accepted this outcome Tc from patient calling in regards to sinus difficulty has a mucus discharge and pressure documented in this encounter Plan of Treatment Upcoming Encounters Date Type Department Care Team (Late st Contact Info) Description 10/11/2024 9:00 AM EDT Office Visit [facility] [address] [place] [address] Reza Nova MD [address] [place] [address] documented as of this encounter Visit Diagnoses Not on filedocumented in this encounter Care Teams Gameplay Engineer Relationship Specialty Start Date End Date Reza Nova MD [address] [place] [address] PCP - General Internal Medicine 07/28/18 documented as of this encounter
--- OUTSIDE RECORDS SUMMARY | 2024-08-18 16:18 | XMS_ITS | Encounter Summary ---
Author Organization [employer] Address [address] [facility] 7 [place] [address] Care Team Providers Care Pumper Helper Name Role Phone Reza Nova MD Primary Care Provider +1- [phone] Reason for Visit * Reason Onset Date Comments Hospital Follow-up 04/21/2023 Encounter Details Date Type Department Care Team ([facility] st Contact Info) Description 04/21/2023 Telephone [facility] [address] [place] [address] Reza Nova MD [address] [place], [place] [phone] Hospital Follow-up Social History Tobacco Use Types Packs/Day Years Used Date Smoking Tobacco: Never Assessed Depression Answer Date Recorded Patient Health Questionnaire-9 [...] Telephone Encounter - Adrianna Hough RN - 04/21/2023 1:36 PM EDT Triage call Pt requesting HDF apt with PCP. Pt was seen in [facility] 04/10/23 - 04/12/23 for STEMI. Pt doesreport symptoms of light headedness, some shortness of breath. Pt reports , I forget to breath will gasp for air and then breaths normally but, must be mindful of need to breath. Pt is needing to get referral for staining machine operator as well. Apt for Pt HDF with PCP 04/23/23 @ 915am. Insurance is verifiedas active prior to booking. Protocol Used: Dizziness (Adult) Protocol-Based Disposition: See in Office or Video Visit within 3 Days Positive Triage Question: * Mild dizziness (e.g., walking normally) and has NOT been evaluated by physician for this (Exception: Dizziness caused by heat exposure, sudden standing, or poor fluid intake.) * All higher-acuity triage questions were negative Care Advice Discussed: * Drink Fluids * Telephone Encounter - Dieudonne Rutledge - 04/21/2023 1:09 PM EDT Pt calling for HDF follow up appointment. Pt hospitalized at [facility] 04/10/23 and discharged on 04/13/23,Reports to be seen for seizure episode. Pt stated feels light headed, shortness of breath. Pt advised will forward nurse for follow up and appointment scheduling. Please contact at [phone] documented in this encounter Plan of Treatment Upcoming Encounters Date Type Department Care Team ([facility] st Contact Info) Description 10/11/2024 9:00 AM EDT Office Visit [facility] [address] [place] [address] Reza Nova MD [address] [place] [address] documented as of this encounter Visit Diagnoses Not on filedocumented in this encounter Care Teams Pumper Helper Relationship Specialty Start Date End Date Reza Nova MD [address] [place] [address] PCP - General Internal Medicine 07/28/18 documented as of this encounter
--- OUTSIDE RECORDS SUMMARY | 2024-08-18 16:18 | XMS_ITS | Encounter Summary ---
Author Organization [employer] Address [address] [facility] [address] [place] [address] Care Team Providers Care Auriculotherapist Name Role Phone Reza Nova MD Primary Care Provider +1- [phone] Reason for Visit * Reason Comments Dental Pain Encounter Details Date Type Department Care Team ([facility] st Contact Info) Description 08/03/2024 9:00 AM EST Office Visit [facility] ADULT D[facility]AL [address] [place] [address] Mckenna Mcdaniel DDS [address] [place] [address] Social History Tobacco Use Types Packs/Day Years [...] AM EDT documented as of this encounter Progress Notes * Mckenna Mcdaniel DDS - 08/03/2024 9:00 AM EST Dental procedures in this visit [id number] - LIMITED ORAL EVALUATION - PROBLEM FOCUSED 5 (Completed) Service provider: Mckenna Mcdaniel DDS Billing provider: Carmenza Shrestha DDS Patient ID: Logan Adame is a 53 y.o. male. Time Out: Date: 08/03/2024 Location: [facility] Tooth: Maxilla &mandible Procedure: Exam Verified the above with patient, fire assistant, and provider. Confirmed via patient's chart, intraorally and by radiographs. Pet Caretaker: not applicable 53 y.o. y/o male presents for limited exam with Dr. Mckenna Mcdaniel DDS Medical history: Reviewed in EHR Vitals: There were no vitals taken for this visit. Allergies: Reviewed in EHR Medications: Reviewed in EHR Radiographs taken: PA & BW CHIEF COMPLAINT: my upper right teeth its hurting so much I know I have to get it extracted but amstill waiting for my water resource engineering specialist appointment on aug 15 for the medical clearance Discussion: During visit clinical & radiograph examination was done. Upon evaluation it was noted radiolucence present on #5. Generalized grossly decay at the level of the root not restorable. Pain was present upon palpation and percussion. PT was informed that extraction its advised however, upon clinical examination it was noted multiple grossly decay teeth in the maxilla and mandibular arch. Therefore, given clinical findings we would advised to come back for comprehensive exam in order to take full mouth radiograph, a full mouth exam and determine a final treatment plan. Pt have medical history of having a heart attack a year ago. Medical clearence was given on previous visit but still havent received yet. PT was given antibiotics as recommendation of Dr. Nova until medical clearance its given. PT its aware of the importance of the importance for the medical clearance in order to proceed to do the extraction and remove the source of infection. PT agreed & understood. Prescription: Amoxicillin 500mg x7day TID Ibuprofen 600mg X10day TID Note: Medical clearance was scan and given to the patient & Dr. Nova NV: ext Provider: Dr. Mckenna Mcdaniel DDS Dental Internal Control Analyst: Seb Almaguer Attending: Dr. Shrestha * Carmenza Shrestha DDS - 08/03/2024 9:00 AM EST I have reviewed the documentation and dental procedures completed by the rendering provider, Mckenna Mcdaniel DDS, and approve their chart entries for this visit. CORY Pereyra DDS documented in this encounter Plan of Treatment Upcoming Encounters Date Type Department Care Team (Late st Contact Info) Description 10/11/2024 9:00 AM EDT Office Visit [facility] MED [facility] PEDS [address] [place] [address] Reza Nova MD [address] [place] [address] Scheduled Orders Name Type Priority Associated Diagnoses Orde r Schedule 5 5 EXTRACTION, ERUPTED TOOTH OR EXPOSED ROOT (ELEVATION AND/OR FORCEPS REMOVAL) Dental Routine 1 Occurrences s tarting 08/03/2024 6 6 EXTRACTION, ERUPTED TOOTH OR EXPOSED ROOT (ELEVATION AND/OR FORCEPS REMOVAL) Dental Routine 1 Occurrences s tarting 08/03/2024 4 4 EXTRACTION, ERUPTED TOOTH OR EXPOSED ROOT (ELEVATION AND/OR FORCEPS REMOVAL) Dental Routine 1 Occurrences s tarting 08/03/2024 documented as of this encounter Procedures Procedure Name Priority Date/Time Associated Diagnosis Comments 5 LIMITED ORAL EVALUATION - PROBLEM FOCUSED Routine 08/03/2024 9:00 AM EST documented in this encounter Visit Diagnoses Not on filedocumented in this encounter Additional Health Concerns Assessment Noted Time PHQ-9 Depression Total Score: 7 01/22/20 24 3:45 PM EDT documented as of this encounter Care Teams Auriculotherapist Relationship Specialty Start Date End Date Reza Nova MD [address] [place] [address] PCP - General Internal Medicine 07/28/18 documented as of this encounter
--- OUTSIDE RECORDS SUMMARY | 2024-08-18 16:18 | XMS_ITS | Encounter Summary ---
Author Organization [employer] Address [address] [facility] 7 [place] [address] Care Team Providers Care Hooker Up Name Role Phone Reza Nova MD Primary Care Provider +1- [phone] Reason for Visit * Reason Onset Date Comments Medication Question 07/09/2023 Encounter Details Date Type Department Care Team ([facility] Contact Info) Description 07/09/2023 Telephone [facility] MEDICINE [address] [place] [address] Reza Nova MD [address] [place] [address] Medication Question Social History Tobacco Use Types Packs/Day Years Used Date Smoking Tobacco: Former Cigarettes 1 37 1 - 05/24/2023 Smokeless Tobacco: Never Comments:Has Nicotine patche s at home. Slowly cutting down. Depression Answer Date Recorded Patient Health Questionnaire-9 Score 24 07/09/2023 Patient Health Questionnaire-9 Score 24 07/09/2023 Last PHQ-9: Questionnaire Data Not on file 1 09/09/2022 Housing Stability Answer Date Recorded What is [...] Answer Date Recorded Patient Health Questionnaire-2 Score 6 07/09/2023 Sex and Gender Information Value Date Recorded Sex Assigned at Male 05/27/2022 10:20 AM EDT Legal Sex Male 10:20 AM EDT Gender Identity Male 05/27/2022 10:20 AM EDT Sexual Orientation Don't know 05/27/2022 10 :20 AM EDT documented as of this encounter Miscellaneous Notes * Telephone Encounter - Kelly Livingston RN - 07/09/2023 4:41 PM EST Returned call to pharmacy and informed of PCP ok to change formulation. Pharmacy agrees with plan. * Telephone Encounter - Jeanne Harp - 07/09/2023 11:16 AM EST Tc from [facility] Indicating that they do not obtain medication psyllium (Metamucil Smooth Texture) 58.6 % powder with that percentage (58.6) but they do have 100%. Pharmacy is requesting if it is okay to prescribed that medication instead of the 58.6 % . Please contact Pharmacy @ [phone] documented in this encounter Plan of Treatment Upcoming Encounters Date Type Department Care Team (Late st Contact Info) Description 10/11/2024 9:00 AM EDT Office Visit [facility] [address] [place], [place] [phone] Reza Nova MD [address] [place] [address] documented as of this encounter Visit Diagnoses Not on filedocumented in this encounter Additional Health Concerns Assessment Noted Time PHQ-9 Depression Total Score: 24 023 10:43 AM EST documented as of this encounter Care Teams Hooker Up Relationship Specialty Start Date End Date Reza Nova MD [address] [place] [address] PCP - General Internal Medicine 07/28/18 documented as of this encounter
--- OUTSIDE RECORDS SUMMARY | 2024-08-18 16:18 | XMS_ITS | Encounter Summary ---
Author Organization [employer] Address [address] [facility] 7t [place] [address] Care Team Providers Care Tape Recording Machine Operator Name Role Phone Reza Nova MD Primary Care Provider +1 [phone] Encounter Details Date Type Department Care Team ([facility] st Contact Info) Description 08/04/2024 Orders Only [facility] MED & PEDS [address] [place], [place] [phone] Reza Nova MD [address] [place], [place] [phone] Social History Tobacco Use Types Packs/Day Years [...] Upcoming Encounters Date Type Department Care Team ([facility] st Contact Info) Description 10/11/2024 9:00 AM EDT Office Visit [facility] & P[facility]S [address] [place] [address] Reza Nova MD [address] [place] [address] documented as of this encounter Visit Diagnoses Not on filedocumented in this encounter Additional Health Concerns Assessment Noted Time PHQ-9 Depression Total Score: 7 01/22/20 24 3:45 PM EDT documented as of this encounter Care Teams Tape Recording Machine Operator Relationship Specialty Start Date End Date Reza Nova MD [address] [place] [address] PCP - General Internal Medicine 07/28/18 documented as of this encounter
--- OUTSIDE RECORDS SUMMARY | 2024-08-18 16:18 | XMS_ITS | Encounter Summary ---
Author Organization [employer] Address [address] [place] [address] 7 [place] [address] Care Team Providers Care Train Control Technician Name Role Phone Reza Nova MD Primary Care Provider +1- [phone] Encounter Details Date Type Department Care Team ([facility] Contact Info) Description 06/04/2023 Orders Only [facility] MED & PEDS [address] [place] [address] Reza Nova MD [address] [place], [place] [phone] Social History Tobacco Use Types Packs/Day Years Used Date Smoking Tobacco: Every Day Cigarettes 1 37 Smokeless Tobacco: Never Comments:Has Nicotine patche s [...] Encounters Date Type Department Care Team (Late Contact Info) Description 10/11/2024 9:00 AM EDT Office Visit [facility] MED & PEDS [address] [place] [address] Reza Nova MD [address] [place] [address] documented as of this encounter Visit Diagnoses Not on filedocumented in this encounter Care Teams Train Control Technician Relationship Specialty Start Date End Date Reza Nova MD [address] [place] [id number] PCP - General Internal Medicine 07/28/18 documented as of this encounter
--- OUTSIDE RECORDS SUMMARY | 2024-08-18 16:18 | XMS_ITS | Encounter Summary ---
Author Organization [employer] Address [address] [facility] 7t [place] [address] Care Team Providers Care Aquatics Lifeguard Name Role Phone Reza Nova MD Primary Care Provider +1- [phone] Reason for Visit * Reason Onset Date Comments Hospital Follow-up 07/22/2023 Encounter Details Date Type Department Care Team ([facility] st Contact Info) Description 07/22/2023 Telephone [facility] MEDICINE [address] [place] [address] Reza Nova MD 505 [place], [place] [phone] Hospital Follow-up Social History Tobacco Use Types [...] Telephone Encounter - Kelly Livingston RN - 07/23/2023 10:12 AM EST Returned call to pt regarding message below. Pt states having a cardiology f/u on 07/31/23. Pt agreesto HDF with PCP on 07/30/23. Notes scanned into pt chart. Pt in the hospital [facility] 07/13/23-07/19/23 for V-tach and discharge of ICD. * Telephone Encounter - Tony Rod - 07/22/2023 1:51 PM EST Tc from pt requesting a HDF appt. Hospital: [facility] Date of admission: 07/13 Discharge date: 07/19 Diagnosed: Was shocked by implantable cardioverter-defibrillator was shocked 13 times due to V-Tach documented in this encounter Plan of Treatment Upcoming Encounters Date Type Department Care Team (Late st Contact Info) Description 10/11/2024 9:00 AM EDT Office Visit [facility] MED & PEDS [address] [place] [address] Reza Nova MD [address] [place] [address] documented as of this encounter Visit Diagnoses Not on filedocumented in this encounter Additional Health Concerns Assessment Noted Time PHQ-9 Depression Total Score: 24 023 10:43 AM EST documented as of this encounter Care Teams Aquatics Lifeguard Relationship Specialty Start Date End Date Reza Nova MD [address] [place] [address] PCP - General Internal Medicine 07/28/18 documented as of this encounter
--- OUTSIDE RECORDS SUMMARY | 2024-08-18 16:18 | XMS_ITS | Encounter Summary ---
Author Organization [facility] [employer] Address [address] [place] [address] 7 [place] [address] Care Team Providers Care Insurance Application Investigator Name Role Phone Reza Nova MD Primary Care Provider +1- [phone] Encounter Details Date Type Department Care Team (Latest Contact Info) Description 08/12/2018 Abstract [facility] CONVERSIONS Dental, Provider, DDS Social History Tobacco Use Types Packs/Day Years Used Date Smoking Tobacco: Never Assessed Sex and Gender Information Value Date Recorded Sex Assigned at Male 05/27/2022 10:20 AM EDT Legal Sex Male 10:20 AM EDT Gender Identity Male 05/27/2022 10:20 AM EDT Sexual Orientation Don't know 05/27/2022 10 :20 AM EDT documented as of this encounter Plan of Treatment Upcoming Encounters Date Type Department Care Team (Late st Contact Info) Description 10/11/2024 9:00 AM EDT Office Visit [facility] MED & PEDS [address] [place] [address] Reza Nova MD 505 [place] [address] documented as of this encounter Visit Diagnoses Not on filedocumented in this encounter Care Teams Insurance Application Investigator Relationship Specialty Start Date End Date Reza Nova MD [address] [place] [address] PCP - General Internal Medicine 07/28/18 documented as of this encounter
--- OUTSIDE RECORDS SUMMARY | 2024-08-18 16:18 | XMS_ITS | Encounter Summary ---
Author Organization [employer] Address [address] [facility] 7 [place] [address] Care Team Providers Care Diamond Die Driller Name Role Phone Reza Nova MD Primary Care Provider +1- [phone] Reason for Visit * Reason Onset Date Comments Call Back Request 07/24/2023 Encounter Details Date Type Department Care Team ([facility] Contact Info) Description 07/24/2023 Telephone [facility] MEDICINE [address] [place] [address] Reza Nova MD [address] [place] [address] Call Back Request Social History Tobacco Use Types Packs/Day Years [...] encounter Miscellaneous Notes * Telephone Encounter - Tony Rod - 07/24/2023 3:22 PM EST Tc from patient stating has a missed call from the [facility] and was returning the call however technical proposal writer does not see anything on patients chart documented in this encounter Plan of Treatment Upcoming Encounters Date Type Department Care Team (Late st Contact Info) Description 10/11/2024 9:00 AM EDT Office Visit [facility] MED & PEDS [address] [place] [address] Reza Nova MD [address] [place] [address] documented as of this encounter Visit Diagnoses Not on filedocumented in this encounter Additional Health Concerns Assessment Noted Time PHQ-9 Depression Total Score: 24 023 10:43 AM EST documented as of this encounter Care Teams Diamond Die Driller Relationship Specialty Start Date End Date Reza Nova MD [address] [place] [address] PCP - General Internal Medicine 07/28/18 documented as of this encounter
--- OUTSIDE RECORDS SUMMARY | 2024-08-18 16:18 | XMS_ITS | Encounter Summary ---
Author Organization [employer] Address [address] [facility] 7 [place] [address] Care Team Providers Care Physician Practice Coordinator Name Role Phone Reza Nova MD Primary Care Provider +1- [phone] Reason for Visit * Reason Onset Date Comments Medication Question 07/16/2024 Encounter Details Date Type Department Care Team ([facility] Contact Info) Description 07/16/2024 Telephone [facility] [address] [place], [place] [phone] Reza Nova MD 505 [place] [address] Medication Question Social History Tobacco Use Types [...] encounter Miscellaneous Notes * Telephone Encounter - Tasneem Sanchez RN - 07/16/2024 4:06 PM EST TC- pt stated all medications are now available at the pharmacy. * Telephone Encounter - Be Monroe - 07/16/2024 10:23 AM EST Tc from pt requesting status for medication that was supposed to get send over to pharmacy and never was received. documented in this encounter Plan of Treatment Upcoming Encounters Date Type Department Care Team ([facility] st Contact Info) Description 10/11/2024 9:00 AM EDT Office Visit [facility] MED & PEDS [address] [place] [address] Reza Nova MD [address] [place] [address] documented as of this encounter Visit Diagnoses Not on filedocumented in this encounter Additional Health Concerns Assessment Noted Time PHQ-9 Depression Total Score: 7 01/22/20 24 3:45 PM EDT documented as of this encounter Care Teams Physician Practice Coordinator Relationship Specialty Start Date End Date Reza Nova MD [address] [place] [phone] PCP - General Internal Medicine 07/28/18 documented as of this encounter
[2024-08-18 18:02] LABS: Prothrombin Time 12.2 SEC (10.9-12.4)
[2024-08-24 18:17] LABS: Factor V Leiden NEGATIVE
[2024-08-24 20:58] LABS: MTHFR Mutation Detection POSITIVE
== END 2024-08-18 13:59 | disposition home or self-care (01) ==
LOC: HO.CHCLDS 13:58
PROVIDERS: Visit Provider Internal Medicine
DX: I47.20 Ventricular tachycardia, unspecified (principal); I50.20 Unspecified systolic (congestive) heart failure
CPT/HCPCS: 36415; 81241; 81291; 85610

== ENCOUNTER 2025-03-16 11:08 | Outpatient (REF) | payer MEDICAID, SELFPAY ==
--- OUTSIDE RECORDS SUMMARY | 2025-03-16 12:31 | XMS_ITS | Clinical Summary ---
Author Organization [employer] Address [address] [facility] 7t [place] [address] Care Team Providers Care Website Developer Name Role Phone Reza Nova MD Primary Care Provider +- [phone] Allergies No known active allergies Medications * This document contains information received from the source organization and may not represent a complete record from that organization. nicotine (Nicoderm, Step 1) 21 MG/24HR patch APPLY 1 PATCH TOPICALLY EVERY DAY. REMOVE OLD PATCH BEFORE APPLYING NEW ONE. 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 900 tablet 023 Active atorvastatin (Lipitor) 80 MG tabletIndicatio ns:ST elevation myocardial infarction involving right coronary artery (CMS/HCC) Take 1 tablet (80 mg) by mouth in the morning. 90 tablet 3 023 Active magic mouthwash (lidocaine, diphenhydrAMINE , Maalox 1:1:1) Swish and spit 15 mL every 4 (four) hours if needed for mucositis. 1 part diphenhydramine 12.5 mg per 5 mL elixir, 1 part Maalox (do not substitute Kaopectate), 1 part 2% viscous lidocaine. Quantity: 120 mL. 120 each 023 Active magnesium oxide (Mag-Ox) 400 (240 Mg) MG tablet Take 1 tablet by mouth 1 (one) time each day. 023 Active methadone (Dolophine) 10 MG/5ML solution Take 110 mg by mouth 1 (one) time each day. 11/03/2 023 Active metoprolol succinate XL (Toprol-XL) 100 MG 24 hr tablet Take 1 tablet by mouth 1 (one) time each day. Active mexiletine (Mexitil) 150 MG capsule Take 1 capsule by mouth every 12 (twelve) hours. Active Entresto 24-26 MG tablet Take 1 tablet by mouth 2 times daily. Active Bisacodyl EC 5 MG EC tabletIndicatio ns:Other constipation TAKE 1 TABLET BY MOUTH EVERY DAY NEEDED FOR CONSTIPATION. DO NOT CRUSH, CHEW, OR SPLIT TABLETS. 90 tablet Active Farxiga 10 MG Take 10 mg by mouth Once per day. Active hydrocortisone (Anusol-HC) 2.5 % rectal creamIndication s:External hemorrhoids INSERT INTO THE RECTUM 2 TIMES DAILY. 30 g 1 Active polyethylene glycol, PEG, 3350 (MiraLax) 17 GM/SCOOP powderIndicatio ns:Other constipation Take 17 g by mouth Once per day for 3 days. 51 g 025 2024 Active hydrocortisone (Anusol-HC) 2.5 % rectal creamIndication s:External hemorrhoids INSERT INTO THE RECTUM 2 TIMES DAILY. 30 g 1 025 2024 Discontinued amoxicillin-cla vulanate (Augmentin) 875-125 MG tablet Take 1 tablet by mouth 2 times daily for 10 days. 20 tablet 025 2024 Discontinued(R eorder (will not trigger notification to Pharmacy)) amoxicillin-cla vulanate (Augmentin) 875-125 MG tablet Take 1 tablet by mouth 2 times daily for 7 days. 14 tablet 025 2024 amoxicillin (Amoxil) 500 MG capsuleIndicati ons:History of tooth extraction, unspecified edentulism class Take 1 capsule (500 mg) by mouth every 8 (eight) hours for 7 days. 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 06/11/2023 Ventricular tachycardia 06/11/2023 HFrEF (heart failure with reduced ejection fract ion) 06/11/2023 Inflammatory disease of liver 01/08/2012 Backache 01/08/2012 Encounters Date Type Department Care Team Description 03/16/2025 10:30 AM EDT Office Visit [facility] MED & PEDS [address] [place] [address] Reza Nova MD [place] (dyspnea on exertion) (Primary Dx); History of smoking; External hemorrhoids; Other constipation 03/16/2025 Travel 03/15/2025 Telephone [facility] MED & PEDS [address] [place] [address] Reza Nova MD Chart Prep 03/07/2025 Refill [facility] MED & PEDS [address] [place] [address] Reza Nova MD External hemorrhoids 03/02/2025 1:00 PM EDT Office Visit [facility] ADULT DENTAL [address] [place] [address] Florencio Hair DMD 02/23/2025 8:00 AM EDT Office Visit [facility] ADULT DENTAL [address] [place] [address] Florencio Hair DMD History of tooth extraction, unspecified edentulism class (Primary Dx) 02/15/2025 Orders Only [facility] ADULT DENTAL [address] [place] [address] Steffen Higginbotham DMD 02/15/2025 Refill [facility] ADULT DENTAL [address] [place] [address] Mckenna Mcdaniel DDS 01/31/2025 11:30 AM EDT Office Visit [facility] ADULT DENTAL [address] [place] [address] Steffen Higginbotham, [place] Dental abscess (Primary Dx); Dental caries; Periodontal disease 01/05/2025 10:30 AM EDT Office Visit [facility] ADULT DENTAL [address] [place] [address] Florencio Hair, [place] 01/03/2025 Refill [facility] MED & PEDS [address] [place] [address] Reza Nova MD External hemorrhoids from Last 3 Months Immunizations Immunization Administration Dates Next Due Pfizer Covid-19 Vaccine [...] Sign Reading Time Taken Comments Blood Pressure 91/57 03/16/2025 10:33 AM EDT Pulse 88 03/16/2025 10:33 AM EDT Temperature 36.6 C (97.8 F) 03/16/2025 10:33 AM EDT Respiratory Rate 20 03/16/2025 10:33 AM EDT Oxygen Saturation 98% 03/16/2025 10:33 AM EDT Inhaled Oxygen Concentration - - Weight 85.7 kg (189 lb) 03/16/2025 10:33 AM EDT Height 175.3 cm (5' 9 ) 03/16/2025 10:33 AM EDT Body Mass Index 27.91 03/16/2025 10:33 AM EDT Plan of Treatment Health Maintenance Due Date Last Done Comments CT Colonography 1972 Colonoscopy 1972 Colorectal Cancer Screening 1972 FIT DNA/Cologuard 1972 FIT 1972 FOBT 1972 HIV Screening 1972 Lipid Panel 1972 Sigmoidoscopy 1972 Disability Screening 1972 Family Planning (PISQ) 1987 Hepatitis C Screening 1990 DTaP/Tdap/Td Vaccines (1 - Tdap) 1991 Hepatitis A Vaccines (1 of 2 - Risk 2-dose series) 1991 Hepatitis B Vaccines (1 of 3 - 19+ 3-dose series) 1991 Dental Prophylaxis 02/10/2019 08/12/2018, 1 08/24/2016, 12/17/2016 Dental X-Ray: Full Mouth 10/04/2019 10/02/2016, 11/2012 Lung Cancer Screening 2022 Zoster Vaccines (1 of 2) 2022 COVID-19 Vaccine ( season) 2024 01/22/2024, 08/17/2021, 01/20/2021, Additional history exists Depression Screening 01/21/2025 01/22/2024, 01/22/20 Influenza Vaccine (#1) 2025 Alcohol/Substance Use Screening 07/15/2025 07/15/2024 Dental Oral Exam 08/04/2025 01/31/2025, 10/02/2016 SDOH Screening 10/11/2025 10/11/2024 Dental X-Ray: Bitewings 02/01/2026 02/01/20, 09/20/2024, 09/21/2019, Additional history exists Tobacco Screening 03/16/2026 03/16/2025 RSV Patients and Patients Aged 60 years or older (1 - 1-dose 75+ series) 2047 Pneumococcal Vaccine: 50+ Years Completed 01/22/2024 HIB Vaccines Aged Out No longer eligi ble based on patient's age to complete this topic HPV Vaccines Aged Out No longer eligi ble based on patient's age to complete this topic IPV Vaccines Aged Out No longer eligi ble based on patient's age to complete this topic Meningococcal B Vaccine Aged Out No l onger eligible based on patient's age to complete [...] Procedure Name Priority Date/Time Associated Diagnosis Comments RE-EVAL - POST-OP OFFICE VISIT Routine 03/02/2025 1:00 PM EDT 5 EXTRACTION, ERUPTED TOOTH OR EXPOSED ROOT (ELEVATION/FORCEPS REMOVAL) Routine 02/23/2025 8:00 AM EDT 4 EXTRACTION, ERUPTED TOOTH OR EXPOSED ROOT (ELEVATION/FORCEPS REMOVAL) Routine 02/23/2025 8:00 AM EDT CASE PRESENTATION, DETAILED AND EXTENSIVE TREATMENT PLANNING Routine 01/31/2025 11:30 AM EDT Dental abscess Dental caries Periodontal disease INTRAORAL - PERIAPICAL FIRST RADIOGRAPHIC IMAGE Routine 01/31/2025 11:30 AM EDT Dental abscess Dental caries Periodontal disease BITEWING - SINGLE RADIOGRAPHIC IMAGE Routine 01/31/2025 11:30 AM EDT Dental abscess Dental caries Periodontal disease PERIODIC ORAL EVALUATION - ESTABLISHED PATIENT Routine 01/31/2025 11:30 AM EDT Dental abscess Dental caries Periodontal disease 31 EXTRACTION Routine 01/31/2025 12:00 AM EDT NO CHARGE PROCEDURE Routine 01/05/2025 1 0:30 AM EDT PROPHYLAXIS - ADULT Routine 08/12/2018 1 2:00 AM EST INTRAORAL - COMPLETE SERIES OF RADIOGRAPHIC IMAGES Routine 10/02/2016 12:00 AM EST from Last 3 Months or Most Recently Relevant to Health Maintenance Insurance [facility] C3 DENTAL-[facility] MEDICAID STAND ADULT Care Teams Website Developer Relationship Specialty Start Date End Date Reza Nova MD [address] [place] [address] PCP - General Internal Medicine 07/28/18
[2025-03-17 08:58] LABS: ~HepC Num1 14.28 S/CO (0.00-0.79); ~Hepatitis C Antibody Reactive (Nonreactive)
[2025-03-18 14:58] LABS: HCV Log PCR <1.18 NOT DETECTED Log IU/mL (NOT DETECTED); HepC Viral Load <15 NOT DETECTED IU/mL (NOT DETECTED)
== END 2025-03-16 11:09 | disposition home or self-care (01) ==
LOC: HO.CHCLDS 11:08
PROVIDERS: Visit Provider Internal Medicine
DX: R06.09 Other forms of dyspnea (principal); K64.4 Residual hemorrhoidal skin tags; Z11.59 Encounter for screening for other viral diseases; Z87.891 Personal history of nicotine dependence
CPT/HCPCS: 36415; 86803; 87522

== ENCOUNTER 2025-06-27 11:28 | Outpatient (AMB) | payer MEDICAID, SELFPAY ==
--- OUTSIDE RECORDS SUMMARY | 2025-06-22 23:59 | XMS_ITS | Continuity of Care Document ---
Author Organization [facility] Address [address] [place] [address]- Care Team Providers Care Edi Programmer Analyst Name Role Phone Reza Nova MD Primary Care Physician Encounter [facility] [id number] Date(s): 03/23/25 - 06/22/[address] [address] Attending Physician: James Billingsley MD Admitting Physician: James Billingsley MD Referring Physician: Reza Nova MD Encounter Type: Pre-Outpt Allergies, Adverse Reactions, Alerts No Known Allergies Immunizations Given and Recorded Vaccine Date Status Refusal Reason SARS-CoV-2 (COVID-19) mRNA-1273 vaccine 08/17/21 R ecorded SARS-CoV-2 (COVID-19) mRNA BNT-162b2 vac 01/20/21 Recorded SARS-CoV-2 (COVID-19) mRNA BNT-162b2 vac 12/08/20 Recorded Medications aspirin 81 mg oral capsule 1 capsule = 81 mg, By Mouth, Every 24 hours, 0 Refills, Maintenance, 12/06/24 12:56:00 PM EDT, Partial fill upon patient request if the prescription is for a schedule II opioid drug. Start Date: 12/06/24 Status: Ordered Medication Dispense Status: Completed Total Allowed Fills: 1 Fills Dispensed: 0 atorvastatin 80 mg oral tablet 1 tablet, By Mouth, Daily at bedtime, # 90 tablet, 3 Refills, Maintenance, 09/09/24 7:54:00 AM EST, [id number], 175, cm, 08/23/24 10:28:00 EST, Height, 73, kg, 11/12/23 8:52:00 EDT, Dry Weight Start Date: 09/09/24 Status: Ordered Medication Dispense Status: Completed Quantity: 90.0 Unit: tablet Total Allowed Fills: 1 Fills Dispensed: 0 bisacodyl 5 mg oral delayed release tablet 1 tablet = 5 mg, By Mouth, Daily, 0 Refills, Maintenance, 02/20/24 12:52:00 PM EDT, Partial fill upon patient request if the prescription is for a schedule II opioid drug. Start Date: 02/20/24 Status: Ordered Medication Dispense Status: Completed Total Allowed Fills: 1 Fills Dispensed: 0 Entresto 97 mg-103 mg oral tablet 1 tablet, By Mouth, 2 times a day, HALEY - entresto, brand name only, # 60 tablet, 12 Refills, Maintenance, 03/07/25 11:28:00 AM EDT, [id number], 30, 1 tablet By Mouth 2 times a day,Instr:HALEY - entresto, brand name only, 175, cm, 12/06/24 12:57:00 EDT, Height, 82, kg, 10/08/24 14:08:00 EDT, Dry Weight Start Date: 03/07/25 Status: Ordered Medication Dispense Status: Completed Quantity: 60.0 Unit: tablet Total Allowed Fills: 13 Fills Dispensed: 0 Farxiga 10 mg oral tablet 1 tablet, By Mouth, Daily, # 90 tablet, 3 Refills, Maintenance, 09/23/24 8:46:00 AM EST, [id number], 175, cm, 08/23/24 10:28:00 EST, Height, 73, kg, 11/12/23 8:52:00 EDT, Dry Weight Start Date: 09/23/24 Status: Ordered Medication Dispense Status: Completed Quantity: 90.0 Unit: tablet Total Allowed Fills: 1 Fills Dispensed: 0 HydroCORTisone 2.5% Topical 0 Refills, Maintenance Start Date: 02/20/24 Status: Ordered Medication Dispense Status: Completed Total Allowed Fills: 1 Fills Dispensed: 0 magnesium oxide 400 mg oral tablet 1 tablet, By Mouth, Daily, # 90 tablet, 1 Refills, Maintenance, 09/14/24 7:42:00 AM EST, [id number], 175, cm, 08/23/24 10:28:00 EST, Height, 73, kg, 11/12/23 8:52:00 EDT, Dry Weight Start Date: 09/14/24 Status: Ordered Medication Dispense Status: Completed Quantity: 90.0 Unit: tablet Total Allowed Fills: 1 Fills Dispensed: 0 MAGNESIUM OXIDE 400 MG TABLET MAGNESIUM OXIDE 400 MG TABLET, 1, tablet, By Mouth, Daily, # 90 tablet, 0 Refills, Maintenance, 07/12/24 8:48:00 AM EST, 175, cm, 05/28/24 12:57:00 EDT, Height, 73, kg, 11/12/23 8:52:00 EDT, Dry Weight Start Date: 07/12/24 Status: Ordered Medication Dispense Status: Completed Quantity: 90.0 Unit: tablet Total Allowed Fills: 1 Fills Dispensed: 0 Methadone = 90 mg, By Mouth, Daily, 0 Refills, Maintenance, 08/15/23 9:30:00 AM EST, Tablet, Partial fill uponpatient request if the prescription is for a schedule II opioid drug. Start Date: 08/15/23 Status: Ordered Medication Dispense Status: Completed Total Allowed Fills: 1 Fills Dispensed: 0 metoprolol 200 mg oral tablet, extended release 1 tablet = 200 mg, By Mouth, Daily, # 90 tablet, 4 Refills, Maintenance, 08/24/24 4:54:00 PM EST, [facility], [id number], Partial fill upon patient request if the prescription is for a scheduleII opioid drug., 175, cm, 08/23/24 10:28:00 EST, Height, 73, kg, 11/12/23 8:52:00 EDT, Dry Weight Start Date: 08/24/24 Stop Date: 11/17/25 Status: Ordered Medication Dispense Status: Completed Quantity: 90.0 Unit: tablet Total Allowed Fills: 5 Fills Dispensed: 0 mexiletine 150 mg oral capsule 1 capsule, By Mouth, Every 12 hours, # 180 capsule, 2 Refills, Maintenance, 04/11/25 7:20:00 AM EDT,[id number], 175, cm, 03/07/25 13:17:00 EDT, Height, 82, kg, 10/08/24 14:08:00 EDT, Dry Weight Start Date: 04/11/25 Status: Ordered Medication Dispense Status: Completed Quantity: 180.0 Unit: capsule Total Allowed Fills: 1 Fills Dispensed: 0 Walker See Instructions, # 1 each, Maintenance, Use walker to assist with balance with ambulation., 05/30/23 2:59:00 PM EDT, Supply Start Date: 05/30/23 Status: Ordered Medication Dispense Status: Completed Quantity: 1.0 Unit: each Total Allowed Fills: 1 Fills Dispensed: 0 Problem List Condition Confirmation Course Effective Dates Status H ealth Status Informant Ischemic cardiomyopathy with implantable cardioverter-defibril lator (ICD) Confirmed Active Heart failure with reduced ejection fraction Confirmed Active Hypotension Confirmed Active Paroxysmal ventricular tachycardia Confirmed Active Polysubstance abuse Confirmed Active VT (ventricular tachycardia) Confirmed Active Social History Social History Type Response Smoking Status Former smoker, quit more than 30 days ago; Other: Quite in April; entered on: 08/15/23 Sex Male Sex Representation Male (finding) Patient Care team information Care Team Personnel Name: Argelia Crespo RN Position: [facility] AMB Nurse Member Role: Primary Care Nurse Name: Reza Nova MD Position: [facility] Outreach Member Role: PCP Address: [address] [place] [address] Telecom: Name: Glendy Ceja Position: [facility] RN Supv Member Role: Primary Care Nurse Name: Lauren Gabriel RN Position: [facility] RN Member Role: Primary Care Nurse Name: Madeline Shaikh RN Position: [facility] RN Supv Member Role: Primary Care Nurse Name: Salvador Ramsey RN Position: [facility] RN Member Role: Primary Care Nurse Name: Sujata Peoples RN Position: [facility] RN Supv Member Role: Primary Care Nurse Name: Dion Mejia RN Position: [facility] RN Member Role: Primary Care Nurse Name: Na Abad RN Position: [facility] OB RN Member Role: Primary Care Nurse Care Team Related Persons Name: DELON GORDON Name: NANETTE ALMARAZ Insurance Providers Guarantor name: [facility] Information #: 1 Payer: [employer] Payer Identifier: NA Member Number: [id number] Group Number: NA Subscriber Identifier: [id number] Relationship to Subscriber: self Coverage Type: MEDICAID Coverage Verification Date: NA Telecom: NA Address: NA
--- NOTE | 2025-06-27 11:29 | MHC.OFFVIS ---
Vital Signs 06/27/25 11:38 Height 5 ft 10 in Weight 191 lb BMI 27.4 Intake Visit Reasons: External hemorrhoids Intake Note: This patient presents for an assessment for external hemorrhoids. Pt c/o; reports occasional rectal bleeding when straining with bowel movements, reports never had a colonoscopy before, denies other symptoms. Dry Cleaning Counter Clerk Required: No Accompanied by: Mother Allergies No Known Allergies Allergy (Verified 06/27/25 11:40) Medication List - Last Reconciled 06/27/25 by Maynor Peralta MD aspirin (Adult Aspirin Regimen) 81 mg PO DAILY atorvastatin 80 mg PO BEDTIME dapagliflozin propanediol (Farxiga) 10 mg PO DAILY hydrocortisone 2.5% MD BID magnesium oxide 400 mg PO DAILY methadone (Methadose) 90 mg PO DAILY metoprolol succinate ER 200 mg PO DAILY mexiletine 150 mg PO Q12H sacubitril-valsartan 24-26 mg (Entresto) 1 tab PO BID HPI HPI External hemorrhoids: Details: 54-year-old male referred for hemorrhoids. He describes periodic swelling, pain and bleeding from his hemorrhoids. He said that he has had this for many years. He is chronically constipated. He says he uses cream suppositories to help control his symptoms He has significant coronary artery disease. He had a massive AZ in 2022. He says his ejection fraction is now 15%. He describes shortness of breath with the exertion. He also has had stents placed he had he has a defibrillator/pacemaker in place as well. [facility] Medical History (Updated 06/27/25 @ 11:55 by Maynor Peralta MD) Hemorrhoids with complication Polysubstance abuse Cardiac arrest ICD (implantable cardioverter-defibrillator) in place Ischemic cardiomyopathy CAD (coronary artery disease) Surgical History Stented coronary artery Review of Systems Const Denies chills and Denies fever(s) Card Denies chest pain, Denies dyspnea and Reports dyspnea on exertion Resp Denies cough, Denies dyspnea and Reports dyspnea on exertion GI Reports hematochezia, Denies change in bowel habits and Reports constipation Denies hematuria and Denies difficulty urinating Musc Denies back pain and Denies limited range of motion Neuro Denies focal weakness and Denies convulsions Psych Denies depression and Denies mood swings Physical Exam Const General: comfortable and no acute distress Orientation/consciousness: patient oriented x3 Neck Neck: Yes no lymphadenopathy Resp Auscultation: clear to auscultation bilaterally Cardio Rhythm: regular rhythm GI Other: The patient refused rectal exam Palpation (GI): Soft to palpation, nontender and no guarding Neuro General: patient oriented x3 Office Procedures Anoscopy He was in a kneeling cassandra-knife position. The anoscope was gently inserted. A full examination of the anal canal was done. [id number] Assessment & Plan Assessment & Plan (1) Hemorrhoids with complication: Code(s): K64.8 - Other hemorrhoids Category: Medical Plan: He describes having periodic swelling, pain and bleeding with his hemorrhoids. However he is refusing rectal exam currently. He says that he will continue to use creams and suppositories to control his symptoms I did advise him on the benefits of controlling his constipation. I recommended a bowel regimen including stool softeners as well as fiber supplements. I also told him that he may benefit from consultation with the horticulture/floriculture teacher for his chronic constipation. He continues to follow up with his waist cutter. He can follow up with me on a p.r.n. basis. His mother was with him during the visit. Coding Level of Care Code New Pt Level 3 (24953) Diagnoses Hemorrhoids with complication K64.8 CPT Codes Details - CPT: 61623-[id number] ([id number])
[2025-06-27 11:38] VITALS: BMI 27.4
--- OUTSIDE RECORDS SUMMARY | 2025-06-27 15:09 | XMS_ITS | Encounter Summary ---
Author Organization [employer] Address [address] [place] [address] Care Team Providers Care Senior Technologist Name Role Phone Reza Nova MD Primary Care Provider Reason for Visit * Reason Onset Date Comments Nurse Triage 06/24/2023 Encounter Details Date Type Department Care Team ([facility] st Contact Info) Description 06/24/2023 Telephone [facility] MEDICINE [address] [place] [address] Reza Nova MD [address] [place] [address] Nurse Triage Social History Tobacco Use Types [...] Pt would like to see provider in [facility]. Advised to call first thing in [...] Care Team (Late st Contact Info) Description 08/01/2025 1:00 PM EST Office Visit [facility] ADULT DENTAL [address] [place] [address] Steffen Higginbotham, DMD [address] [place] [address] documented as of this encounter Visit Diagnoses Not on filedocumented in this encounter Care Teams Senior Technologist Relationship Specialty Start Date End Date Reza Nova MD [address] [place] [address] PCP - General Internal Medicine 07/28/18 documented as of this encounter
--- OUTSIDE RECORDS SUMMARY | 2025-06-27 15:09 | XMS_ITS | Encounter Summary ---
Author Organization [employer] Address 75 [facility] 7 [place] [address] Care Team Providers Care Door Liner Name Role Phone Reza Nova MD Primary Care Provider +1- [phone] Reason for Visit * Reason Onset Date Comments Hospital Follow-up 07/22/2023 Encounter Details Date Type Department Care Team ([facility] Contact Info) Description 07/22/2023 Telephone [facility] MEDICINE [address] [place] [address] Reza Nova MD [address] [place] [address] Hospital Follow-up Social History Tobacco Use Types [...] into pt chart. [place] [facility] [place]-07/19/23 for V-tach and discharge of ICD. * Telephone Encounter - Tony Rod - 07/22/2023 1:51 PM EST Tc from pt requesting a HDF appt. Hospital[place] [facility] Date of admission: 07/13 Discharge date: 07/19 Diagnosed: Was shocked by implantable cardioverter-defibrillator was shocked 13 times due to V-Tach documented in this encounter Plan of Treatment Upcoming Encounters Date Type Department Care Team (Late st Contact Info) Description 08/01/2025 1:00 PM EST Office Visit [facility] [address] [place] [address] Steffen Higginbotham, DMD [address] [place] [address] documented as of this encounter Visit Diagnoses Not on filedocumented in this encounter Additional Health Concerns Assessment Noted Time PHQ-9 Depression Total Score: 24 023 10:43 AM EST documented as of this encounter Care Teams Door Liner Relationship Specialty Start Date End Date Reza Nova MD [address] [place] [address] PCP - General Internal Medicine 07/28/18 documented as of this encounter
--- OUTSIDE RECORDS SUMMARY | 2025-06-27 15:09 | XMS_ITS | Encounter Summary ---
Author Organization [employer] Address 75 [facility] 7 [place] [address] Care Team Providers Care Fur Mixer Name Role Phone Reza Nova MD Primary Care Provider +1- [phone] Reason for Visit * Reason Onset Date Comments Medication Question 07/09/2023 Encounter Details Date Type Department Care Team ([facility] Contact Info) Description 07/09/2023 Telephone [facility] MEDICINE [address] [place] [address] Reza Nova MD [address] [place], [place] [id number] Medication Question Social History Tobacco Use Types [...] AM EDT documented as of this encounter Functional Status * Over the past 2 weeks, how often have you been bothered by any of the following problems? Question Answer Date of Assessment Author Patient Health Questionnaire-2 Score 6 06/27 10:43 AM Patsy Rousseau [place] * How difficult have these problems made it for you to do your work, take care of things at home, or get along with other people? Answer Date of Assessment Author Extremely difficult 07/09/2023 10:43 AM Patsy Overton [place] * Over the past 2 weeks, how often have you been bothered by any of the following problems? Question Answer Date of Assessment Author Little interest or pleasure in doing things Nearly every day 07/09/2023 10:43 AM Patsy Rousseau [place] Feeling down, depressed, or hopeless Nearly every day 07/09/2023 10:43 AM Patsy Rousseau [place] Trouble falling or staying asleep, or sleeping too much Nearly every day 07/09/2023 10:43 AM Patsy Rousseau [place] Feeling tired or having little energy Nearly every day 07/09/2023 10:43 AM Patsy Rousseau [place] Poor appetite or overeating Nearly every day 10:43 AM Patsy Rousseau [place] Feeling bad about yourself - or that you are a failure or have let yourself or your family down Nearly every day 07/09/2023 10:43 AM Patsy Rousseau [place] Trouble concentrating on things, such as reading the newspaper or watching television Nearly every day 07/09/2023 10:43 AM Patsy Rousseau [place] Moving or speaking so slowly that other people could have noticed? Or the opposite - being so fidgety or restless that you have been moving around a lot more than usual. Nearly every day 07/09/2023 10:43 AM Patsy Rousseau MA Thoughts that you would be better off or hurting yourself in some way Not at all 07/09/2023 10:43 AM Patsy Rousseau M A Patient Health Questionnaire-9 Score 24 07/09/2023 10:43 AM Patsy Rousseau [place] documented as of this encounter Miscellaneous Notes * Telephone Encounter - Kelly Livingston RN - 07/09/2023 4:41 PM EST Returned call to pharmacy and informed of PCP ok to change formulation. Pharmacy agrees with plan. * Telephone Encounter - Jeanne Harp - 07/09/2023 11:16 AM EST Tc from [facility] Indicating that they do not obtain medication psyllium (Metamucil Smooth Texture) 58.6 % powder with that percentage (58.6) but they do have 100%. Pharmacy is requesting if it is okay to prescribed that medication instead of the 58.6 % . Please contact Pharmacy @ [phone] documented in this encounter Plan of Treatment Upcoming Encounters Date Type Department Care Team (Late st Contact Info) Description 08/01/2025 1:00 PM EST Office Visit [facility] [address] [place] [address] Steffen Higginbotham, DMD [address] [place] [address] documented as of this encounter Visit Diagnoses Not on filedocumented in this encounter Additional Health Concerns Assessment Noted Time PHQ-9 Depression Total Score: 24 07/09/ 023 10:43 AM EST documented as of this encounter Care Teams Fur Mixer Relationship Specialty Start Date End Date Reza Nova MD [address] [place] [address] PCP - General Internal Medicine 07/28/18 documented as of this encounter
--- OUTSIDE RECORDS SUMMARY | 2025-06-27 15:09 | XMS_ITS | Encounter Summary ---
Author Organization [employer] Address 75 [facility] 7 [place] [address] Care Team Providers Care Financial Sales Advisor Name Role Phone Reza Nova MD Primary Care Provider +1- [phone] Reason for Visit * Reason Onset Date Comments Call Back Request 07/24/2023 Encounter Details Date Type Department Care Team ([facility] st Contact Info) Description 07/24/2023 Telephone [facility] MEDICINE [address] [place] [address] Reza Nova MD [address] [place] [address] Call Back Request Social History Tobacco Use [...] stating has a missed call from the [facility] and was returning the call however production underwriter does not see anything on patients chart documented in this encounter Plan of Treatment Upcoming Encounters Date Type Department Care Team (Late st Contact Info) Description 08/01/2025 1:00 PM EST Office Visit [facility] ADULT DENTAL [address] [place] [address] Steffen Higginbotham, [place] [address] [place] [address] documented as of this encounter Visit Diagnoses Not on filedocumented in this encounter Additional Health Concerns Assessment Noted Time PHQ-9 Depression Total Score: 24 023 10:43 AM EST documented as of this encounter Care Teams Financial Sales Advisor Relationship Specialty Start Date End Date Reza Nova MD [address] [place] [address] PCP - General Internal Medicine 07/28/18 documented as of this encounter
--- OUTSIDE RECORDS SUMMARY | 2025-06-27 15:09 | XMS_ITS | Encounter Summary ---
Author Organization [employer] Address [address] [place] [address] 7 [place] [address] Care Team Providers Care Bee Robber Name Role Phone Reza Nova MD Primary Care Provider +1- [phone] Encounter Details Date Type Department Care Team (Latest Contact Info) Description 08/12/2018 Abstract [facility] CONVERSIONS Dental, Provider, DDS Social History [...] Description 08/01/2025 1:00 PM EST Office Visit [facility] [address] [place] [address] Steffen Higginbotham, DMD [address] [place] [address] documented as of this encounter Visit Diagnoses Not on filedocumented in this encounter Care Teams Bee Robber Relationship Specialty Start Date End Date Reza Nova MD [address] [place] [address] PCP - General Internal Medicine 07/28/18 documented as of this encounter
--- OUTSIDE RECORDS SUMMARY | 2025-06-27 15:10 | XMS_ITS | Encounter Summary ---
Author Organization [employer] Address 75 [facility] 7t [place] [address] Care Team Providers Care Stator Connector Name Role Phone Reza Nova MD Primary Care Provider +- [phone] Reason for Visit * Reason Comments Med Change Request Encounter Details Date Type Department Care Team ([facility] st Contact Info) Description 03/25/2024 Refill [facility]ULT [facility] [address] [place] [address] Mckenna Mcdaniel DDS Social History Tobacco Use Types Packs/Day [...] Description 08/01/2025 1:00 PM EST Office Visit [facility] ADULT DENTAL [address] [place] [address] Steffen Higginbotham, DMD [address] [place], [place] [phone] documented as of this encounter Visit Diagnoses Not on filedocumented in this encounter Additional Health Concerns Assessment Noted Time PHQ-9 Depression Total Score: 7 01/22/20 24 3:45 PM EDT documented as of this encounter Care Teams Stator Connector Relationship Specialty Start Date End Date Reza Nova MD [address] [place] [address] PCP - General Internal Medicine 07/28/18 documented as of this encounter
--- OUTSIDE RECORDS SUMMARY | 2025-06-27 15:10 | XMS_ITS | Encounter Summary ---
Author Organization [employer] Address [address] [place] [address] 7 [place] [address] Care Team Providers Care Mail Handler Equipment Operator Name Role Phone Reza Nova MD Primary Care Provider +1- [phone] Encounter Details Date Type Department Care Team (Late Contact Info) Description 06/04/2023 Orders Only [facility] MED & PEDS [address] [place], [place] [phone] Reza Nova MD [address] [place], [place] [phone] Social History Tobacco Use Types Packs/Day Years [...] Department Care Team (Late Contact Info) Description 08/01/2025 1:00 PM EST Office Visit [facility] ADULT DENTAL [address] [place], [place] [phone] Steffen Higginbotham DMD [address] [place], [place] [phone] documented as of this encounter Visit Diagnoses Not on filedocumented in this encounter Care Teams Mail Handler Equipment Operator Relationship Specialty Start Date End Date Reza Nova MD [address] [place] [address] PCP - General Internal Medicine 07/28/18 documented as of this encounter
--- OUTSIDE RECORDS SUMMARY | 2025-06-27 15:10 | XMS_ITS | Clinical Summary ---
Author Organization [employer] Address 75 [facility] 7t [place] [address] Care Team Providers Care Barrel Rifler Broach Name Role Phone Reza Nova MD Primary Care Provider +1- [phone] Allergies No known active allergies Medications * This document contains information received from the source organization and may not represent a complete record from that organization. nicotine (Nicoderm, Step 1) 21 MG/24HR patch APPLY 1 PATCH TOPICALLY EVERY DAY. REMOVE OLD PATCH BEFORE APPLYING NEW ONE. 04/12/20 Active Aspirin Low Dose 81 MG chewable tabletIndication s:ST elevation myocardial infarction involving right coronary artery (HCC) Chew 1 tablet (81 mg) in the morning. 900 tablet 04/28/20 23 Active atorvastatin (Lipitor) 80 MG tabletIndication s:ST elevation myocardial infarction involving right coronary artery (HCC) Take 1 tablet (80 mg) by mouth in the morning. 90 tablet 3 04/28/20 Active magic mouthwash (lidocaine, diphenhydrAMINE, Maalox 1:1:1) Swish and spit 15 mL every 4 (four) hours if needed for mucositis. 1 part diphenhydramine 12.5 mg per 5 mL elixir, 1 part Maalox (do not substitute Kaopectate), 1 part 2% viscous lidocaine. Quantity: 120 mL. 120 each 06/04/20 Active Additional Information Patient not taking.Reported on 05/10/2025 magnesium oxide (Mag-Ox) 400 (240 Mg) MG [...] 07/02/20 Active Bisacodyl EC 5 MG EC tabletIndication s:Other constipation TAKE 1 TABLET BY MOUTH EVERY DAY NEEDED FOR CONSTIPATION. DO NOT CRUSH, CHEW, OR SPLIT TABLETS. 90 tablet 05/13/20 Active Farxiga 10 MG Take 10 mg by mouth Once per day. 10/29/19 Active hydrocortisone (Anusol-HC) 2.5 % rectal creamIndications :External hemorrhoids INSERT INTO THE RECTUM 2 TIMES DAILY. 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) 06/11/2023 Ventricular tachycardia (CMS/HCC) 06/11/2023 HFrEF (heart failure with reduced ejection fract ion) 06/11/2023 Inflammatory disease of liver 01/08/2012 Backache 01/08/2012 Encounters Date Type Department Care Team Description 05/16/2025 Refill [facility] PED[facility] [address] [place] [address] Reza Nova MD External hemorrhoids 05/10/2025 2:30 PM EDT Office Visit [facility] ADULT DENTAL [address] [place] [address] Steffen Higginbotham DMD Dental caries (Primary Dx) 04/28/2025 1:00 PM EDT Office Visit [facility] ADULT DENTAL [address] [place] [address] Steffen Higginbotham DMD Dental caries (Primary Dx) from Last 3 Months Immunizations Immunization Administration Dates Next Due [employer] Covid-19 Vaccine 12+ 01/22/2024 Pneumococcal Conjugate PCV [...] Sign Reading Time Taken Comments Blood Pressure 110/80 04/28/2025 1:01 PM EDT Pulse 88 03/16/2025 10:33 AM EDT [...] 03/16/2025 10:33 AM EDT Plan of Treatment Upcoming Encounters Date Type Department Care Team (Late st Contact Info) Description 08/01/2025 1:00 PM EST Office Visit [facility] ADULT [facility] [address] [place] [address] Steffen Higginbotham, DMD [address] [place] [address] Health Maintenance Due Date Last Done Comments CT Colonography 1972 Colonoscopy 1972 Colorectal Cancer Screening 1972 FIT DNA/Cologuard 1972 FIT 1972 FOBT 1972 HIV Screening 1972 Lipid Panel 1972 Sigmoidoscopy 1972 Disability Screening 1972 Family Planning (PISQ) 1987 DTaP/Tdap/Td Vaccines (1 - Tdap) 1991 Hepatitis A Vaccines (1 of 2 - Risk 2-dose series) 1991 Hepatitis B Vaccines (1 of 3 - 19+ 3-dose series) 1991 Dental Prophylaxis 02/10/2019 08/12/2018, 1 08/24/2016, 12/17/2016 Dental X-Ray: Full Mouth 10/04/2019 10/02/2016, 11/2012 RSV Patients and Patients Aged 60 years or older (1 - Risk 50-74 years 1-dose series) 2022 Zoster Vaccines (1 of 2) 2022 Depression Screening 01/21/2025 01/22/2024, 01/22/20 24 COVID-19 Vaccine ( - season) 2025 01/22/2024, 08/17/2021, 01/20/2021, Additional history exists Influenza Vaccine (#1) 2025 Alcohol/Substance Use Screening 07/15/2025 07/15/2024 Dental Oral Exam 08/04/2025 01/31/2025, 10/02/2016 SDOH Screening 10/11/2025 10/11/2024 Dental X-Ray: Bitewings 02/01/2026 02/01/20, 09/20/2024, 09/21/2019, Additional history exists Lung Cancer Screening 04/05/2026 04/05/2025, 025 Tobacco Screening 05/10/2026 05/10/2025 Pneumococcal Vaccine: 50+ Years Completed 01/22/2024 Hepatitis C Screening Completed 03/16/2025, 025 HIB Vaccines Aged Out No longer eligi [...] Procedure Name Priority Date/Time Associated Diagnosis Comments CASE PRESENTATION, DETAILED AND EXTENSIVE TREATMENT PLANNING Routine 05/10/2025 2:30 PM EDT Dental caries 22 FF(V) RESIN-BASED COMPOSITE - 1 SURF, ANTERIOR Routine 05/10/2025 2:30 PM EDT Dental caries 21 (V) RESIN-BASED COMPOSITE - 3 SURF, POSTERIOR Routine 05/10/2025 2:30 PM EDT Dental caries CASE PRESENTATION, DETAILED AND EXTENSIVE TREATMENT PLANNING Routine 04/28/2025 1:00 PM EDT Dental caries 28 MODBB(V) RESIN-BASED COMPOSITE - 4+ SURF, POSTERIOR Routine 04/28/2025 1:00 PM EDT Dental caries 27 FF(V) RESIN-BASED COMPOSITE - 1 SURF, ANTERIOR Routine 04/28/2025 1:00 PM EDT Dental caries LDCT LUNG SCREENING Routine 04/05/2025 SKELTON (dyspnea on exertion) HEPATITIS C AB W/REFL TO HCV RNA, QN, PCR Routine 03/16/2025 11:09 AM EDT SKELTON (dyspnea on exertion) History of smoking External hemorrhoids BITEWING - SINGLE RADIOGRAPHIC IMAGE Routine 01/31/2025 11:30 AM EDT Dental abscess Dental caries Periodontal disease PERIODIC ORAL EVALUATION - ESTABLISHED PATIENT Routine 01/31/2025 11:30 AM EDT Dental abscess Dental caries Periodontal disease PROPHYLAXIS - ADULT Routine 08/12/2018 1 2:00 AM EST INTRAORAL - COMPLETE SERIES OF RADIOGRAPHIC IMAGES Routine 10/02/2016 12:00 AM EST from Last 3 Months or Most Recently Relevant to Health Maintenance Results * CT Lung Screening Low dose (04/05/2025) Anatomical Region Laterality Modality Lung Computed Tomogra phy us Reza Nova MD IMG CT PROCEDURES Final Res ult * (ABNORMAL) Hepatitis C Antibody with Reflex to HCV, RNA, Quantitative, Real- Time PCR (03/16/2025 11:09 AM EDT) Hepatitis C Antibody Reactive( A) Nonreactive [facility] Comment:Presumptive evidence of antibodies to HCV. Blood Venous blood specimen / Unknown 03/16/2025 11:09 AM EDT 03/16/2025 2:34 PM EDT us Reza Nova MD LAB BLOOD ORDERABLES Final Result [facility] [address] [place] [phone] from Last 3 Months or Most Recently Relevant to Health Maintenance Insurance [facility] C3 DENTAL-[facility] MEDICAID STAND ADULT Care Teams Barrel Rifler Broach Relationship Specialty Start Date End Date Reza Nova MD [address] [place] [address] PCP - General Internal Medicine 07/28/18
--- OUTSIDE RECORDS SUMMARY | 2025-06-27 15:10 | XMS_ITS | Encounter Summary ---
Author Organization [employer] Address [address] [facility] 7 [place] [address] Care Team Providers Care Tenterer Name Role Phone Reza Nova MD Primary Care Provider [phone] Encounter Details Date Type Department Care Team ([facility] st Contact Info) Description 08/04/2024 Orders Only [facility] [address] [place], [place] [phone] Reza Nova MD [address] [place], [place] [phone] Social History Tobacco Use Types Packs/Day Years [...] Description 08/01/2025 1:00 PM EST Office Visit [facility] [address] [place] [address] Steffen Higginbotham, DMD [address] [place] [address] documented as of this encounter Procedures Procedure Name Priority Date/Time Associated Diagnosis Comments METHYLENETETRAHYDROFOLATE REDUCTASE MUTA Routine 08/18/2024 2:03 PM EST documented in this encounter Results * Methylenetetrahydrofolate Reductase (MTHFR), DNA Mutation Analysis (08/18/2024 2:03 PM EST) Methylenetetrahydrofolate Reductase (MTHFR), DNA POSITIVE [facility] Comment:RESULT: POSITIVE FOR TWO COPIES OF THE C677T VARIANT Interpretation See Below [facility] Comment: INTERPRETATION: 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 This genotype is common in the generalpopulation. Current literature does not support asignificant association of this result with coronary arterydisease, venous thromboembolism, or recurrent pregnancyloss. This result may be significant for individuals takingdrugs like methotrexate.Laboratory testing supervised and results monitored byGui Hayden, Ph.D., [facility], [facility], [place].Reduced methylenetetrahydrofolate reductase (MTHFR) enzymeactivity is a genetic risk factor for hyperhomocysteinemia,especially when present with low serum folate levels. Twocommon variants in the MTHFR gene result in reduced enzymeactivity. The thermolabile variant C677T [NM 648152.3:c.665C>T (p.A222V)] and H7694W [c. 1286A>C (p.E429A)] occurfrequently in the general population.Mild to moderate hyperhomocysteinemia has been identified asa risk factor for coronary artery disease and venousthromboembolism. Hyperhomocysteinemia is multifactorial,involving a combination of genetic, physiologic andenvironmental factors. Recent studies do not support thepreviously described association of increased risk forcoronary artery disease and venous thromboembolism with mildhyperhomocysteinemia caused by reduced MTHFR activity.Therefore, the utility of MTHFR variant testing is uncertainand is not recommended by [employer] ([employer]MG) or the [place] [employer] ofObstetricians and Gynecologists (ACOG) in the evaluation ofvenous thromboembolism or adverse outcome.Modest positive association has also been found between the thermolabile variant of the MTHFR gene and many othermedical complications, such as recurrent loss,risk of offspring with neural tube defects, neuropsychiatricdisease, and chemotherapy toxicity. Increased risk ofcoronary artery disease, venous thromboembolism andincreased plasma homocysteine can be caused by a variety ofgenetic and non-genetic factors not screened for by thisassay. If indicated by personal or family history ofthromboembolism, consider additional testing such as plasmahomocysteine levels, factor V Leiden and prothrombin genemutations.The C677T and O6922W variants are detected by amplificationof the selected regions of the MTHFR gene by polymerasechain reaction (PCR) and fluorescent probes hybridization tothe targeted regions, followed by melting curve analysiswith a real time PCR system. Although rare, false positiveor false negative results may occur. All results should beinterpreted in context of clinical findings, relevanthistory, and other laboratory data. Health care providers,please contact your local [facility] [employer]'s geneticcounselor or call [employer] ([phone]) for assistancewith interpretation of these results.For additional information, please refer tohttp://education.[employer].com/faq/FAQ66 (This linkis being provided for informational/educational purposesonly.)This test was developed and its analytical performancecharacteristics have been determined by [facility]. It has not beencleared or approved by the U.S. Food and DrugAdministration. This assay has been validated pursuant tothe CLIA regulations and is used for clinical purposes.THIS TEST WAS PERFORMED AT:[employer] [id number] [place] [address]RCSSMDARIUS CAROLINA MD,PHD,DANIELLE 08/18/2024 2:03 PM EST 08/18/2024 5:35 PM EST Reza Nova MD LAB BLOOD ORDERABLES Final Result [facility] [address] [place] [address] [phone] documented in this encounter Visit Diagnoses Not on filedocumented in this encounter Additional Health Concerns Assessment Noted Time PHQ-9 Depression Total Score: 7 01/22/20 24 3:45 PM EDT documented as of this encounter Care Teams Tenterer Relationship Specialty Start Date End Date Reza Nova MD [address] [place] [id number] PCP - General Internal Medicine 07/28/18 documented as of this encounter
--- OUTSIDE RECORDS SUMMARY | 2025-06-27 15:10 | XMS_ITS | Encounter Summary ---
Author Organization [employer] Address [address] [facility] 7 [place] [address] Care Team Providers Care Cementer Machine Applicator Name Role Phone Reza Nova MD Primary Care Provider [phone]- [phone] Reason for Visit * Reason Onset Date Comments Medication Question 07/16/2024 Encounter Details Date Type Department Care Team ([facility] Contact Info) Description 07/16/2024 Telephone [facility] [address] [place] [address] Reza Nova MD [address] [place] [address] Medication Question Social History Tobacco Use Types [...] Description 08/01/2025 1:00 PM EST Office Visit [facility] [address] [place] [address] Steffen Higginbotham, DMD [address] [place] [address] documented as of this encounter Visit Diagnoses Not on filedocumented in this encounter Additional Health Concerns Assessment Noted Time PHQ-9 Depression Total Score: 7 01/22/20 24 3:45 PM EDT documented as of this encounter Care Teams Cementer Machine Applicator Relationship Specialty Start Date End Date Reza Nova MD [address] [place] [address] PCP - General Internal Medicine 07/28/18 documented as of this encounter
--- OUTSIDE RECORDS SUMMARY | 2025-06-27 15:10 | XMS_ITS | Encounter Summary ---
Author Organization [employer] Address [address] [facility] 7t [place] [address] Care Team Providers Care Senior Microsoft Consultant Name Role Phone Reza Nova MD Primary Care Provider [phone]- [phone] Encounter Details Date Type Department Care Team ([facility] st Contact Info) Description 09/23/2024 Orders Only [facility] [address] [place] [address] Reza Nova MD [address] [place], [place] [phone] Social History Tobacco Use Types Packs/Day Years [...] Description 08/01/2025 1:00 PM EST Office Visit [facility] [address] [place] [address] Steffen Higginbotham DMD [address] [place] [address] documented as of this encounter Visit Diagnoses Not on filedocumented in this encounter Additional Health Concerns Assessment Noted Time PHQ-9 Depression Total Score: 7 01/22/20 24 3:45 PM EDT documented as of this encounter Care Teams Senior Microsoft Consultant Relationship Specialty Start Date End Date Reza Nova MD [address] [place] [address] PCP - General Internal Medicine 07/28/18 documented as of this encounter
--- OUTSIDE RECORDS SUMMARY | 2025-06-27 15:10 | XMS_ITS | Encounter Summary ---
Author Organization [employer] Address [address] [facility] [address] [place] [address] Care Team Providers Care Mortgage Consultant Name Role Phone Reza Nova MD Primary Care Provider [phone] Reason for Visit * Reason Onset Date Comments unable to post insurance 10/01/2024 Encounter Details Date Type Department Care Team ([facility] st Contact Info) Description 10/01/2024 Telephone [facility] [address] [place] [address] Mckenna Mcdaniel DDS unable to post insurance Social History Tobacco Use Types Packs/Day Years [...] encounter Miscellaneous Notes * Telephone Encounter - Jud Ewing - 10/01/2024 8:39 AM EST Patient is coming in for an 11:30 emergency visit at [facility]. Unable to post insurance. portal not running in [address] documented in this encounter Plan of Treatment Upcoming Encounters Date Type Department Care Team (Late st Contact Info) Description 08/01/2025 1:00 PM EST Office Visit [facility] [address] [place] [address] Steffen Higginbotham, [place] [address] [place] [address] documented as of this encounter Visit Diagnoses Not on filedocumented in this encounter Additional Health Concerns Assessment Noted Time PHQ-9 Depression Total Score: 7 01/22/20 24 3:45 PM EDT documented as of this encounter Care Teams Mortgage Consultant Relationship Specialty Start Date End Date Reza Nova MD [address] [place] [address] PCP - General Internal Medicine 07/28/18 documented as of this encounter
== END 2025-06-27 11:47 | disposition home or self-care (01) ==
LOC: HO.HGS 11:28
PROVIDERS: PCP Internal Medicine; Visit Provider Surgery
DX: K64.8 Other hemorrhoids (principal)
CPT/HCPCS: 46600; 99203

== ENCOUNTER → 2025-06-27 11:28 | Outpatient (BNVA) | payer MEDICAID, SELFPAY | PROVIDERS: PCP Internal Medicine; Visit Provider Surgery | DX: K64.8 Other hemorrhoids (principal) | CPT/HCPCS: 46600; 99202 ==